=== PATIENT | male | born 1960 | race Caucasian/White ===

== ENCOUNTER → 2023-11-10 07:07 | Outpatient (REF) | payer MEDICARE, SELFPAY | LOC: RAD 07:07 | PROVIDERS: ATTENDING PHYSICIAN Internal Medicine Critical Care Medicine | DX: F17.210 Nicotine dependence, cigarettes, uncomplicated (principal) | CPT/HCPCS: 71271 ==

== ENCOUNTER 2023-12-12 09:17 | Emergency (ER) | payer MEDICARE, SELFPAY ==
[2023-12-12 09:20] VITALS: BP 196/123
--- NOTE | 2023-12-12 09:58 | ED.GENMED ---
History of Present Illness
General
Chief Complaint: Breathing Problem
Source: patient
Exam Limitations: none
Time Seen by Provider: 12/12/23 09:24
Nursing documentation reviewed up to this point in time: agreed with
Travel History
Have you had any contact with someone who has COVID-19?: No
Do you have any symptoms of coronavirus? Fever > 100 degrees, chills, cough, shortness of breath, sore throat, loss of taste or smell, muscle aches, or headache?: No
History of Present Illness
History of Present Illness:
63 y/o M with h/o COPD no home o2 currently
has been previously on bipap, never intubated
here with dyspnea since yeterayd, chest tightness and wheezing
he has tried 2 nebs overnight and used th elast of his inhaler this morning without relief
he has worsening symptosm with exertion
no leg swelling
is due to have echo tomorrow to be sure this is not also chf
has pinto dprevious echo 08/2022 which was normal
saw pulm 2 weeks ago and did a steroid taper 50 x 2, 40 x 2 etc btu he feels like he got worse after stopping
pt has no h/o known chf
no chest pain
just ttightness from not moving air
ran out of his inhalers.
Past History
Past History
ED Past Medical History: COPD and Other (Mild chronic lung disease)
ED Past Surgical History: Orthopedic and Other (Oral surgery, cataract surgery, hernia)
Social History
Tobacco: Smoker
Alcohol: None
Drug: None
Personal:
Living: with family
Employment: Employed
Family History
Family History: Other (Noncontributory)
Review of Systems
Review of Systems
Allergies reviewed?: Yes
All Other Systems: Not applicable
Phy Exam
Physical Exam
Physical Exam:
GENERAL: Alert mild resp distress, tachypneic, anxious
EYE: pupils equal and reactive
NECK: Supple
ENT: o/p clr, mmm.
CARDIAC: low 100s tachy, no murmur,no edema
LUNGS: tachypneic, speaking 3-4 words, diminished, tight, wheezing faint, prolonged exp
ABDOMEN: Soft, without focal tenderness, no r/g, no cvat, normal bowel sounds
NEUROLOGICAL: Alert and oriented, no focal neuro deficits
SKIN: Warm and dry, skin intact.
MUSCULOSKELETAL: No edema, well perfused. neg pete's sign
PSYCH: Normal and appropriate interaction.
Scores
Heart Failure Risk
Heart Failure Risk Score: Not Applicable
Course
Orders/Labs/Results
Orders:
Orders
12/12/23 09:22
Electrocardiogram (*1) Urgent
Reason for Study: Shortness of Breath
12/12/23 09:23
EKG- Treatment ONCE
12/12/23 09:37
Ipratropium/Albuterol Sulfate [Duoneb] 3 ml INH R NOW ONE
Ipratropium/Albuterol Sulfate [Duoneb] 3 ml INH R NOW ONE
Ipratropium/Albuterol Sulfate [Duoneb] 3 ml INH R NOW STA
MethylPREDNISolone PF [Solu-Medrol Pf] 125 mg IV NOW STA
12/12/23 09:38
Cardiac Monitoring- Treatment ONCE
12/12/23 09:55
CR Chest Portable - 1 View Urgent
Comment:
Reason For Exam: copd
Reason Study Needs to be Portable: Patient Unstable
12/12/23 09:56
Complete Blood Count/With Diff Urgent
Comprehensive Metabolic Panel Urgent
NT-proBNP Urgent
12/12/23 10:08
COVID-19 Antigen Urgent
Source: Nasal Swab
Influenza A+B Rapid Molecular Urgent
[facility] Source: Nasal Swab
Specimen Description:
Abnormal Lab Results
12/12/23
09:56
MCH 31.5 H pg
(27.0-31.0)
MPV 10.5 H fL
(7.4-10.4)
Absolute Neuts (auto) 7.4 H 10^3/uL
(1.4-6.5)
Lymphocytes % 19.5 L %
(20.5-51.1)
Sodium 133 L mmol/L
(135-145)
Glucose 106 H mg/dl
(70-99)
12/12/23 09:56
12/12/23 09:56
Vital Signs
Initial and Last Documented VS:
Initial Vital Signs
Temp Pulse Resp BP Pulse Ox
98.7 F 102 18 196/123 96
12/12/23 09:20 12/12/23 09:20 12/12/23 09:20 12/12/23 09:20 12/12/23 09:20
Last Documented Vital Signs
Temp Pulse Resp BP Pulse Ox
98.7 F 84 20 166/90 96
12/12/23 09:20 12/12/23 12:15 12/12/23 12:00 12/12/23 12:00 12/12/23 12:15
MDM/Problems Addressed
Differential Diagnosis Includes:
copd, pneumonia, chf
MDM/Problems Addressed:
63 y/o M with COPD
not on o2 currently bu thas had previously
no intubations
has had bipap
here with air hunger and wheezing since yesterday, ran out of neb and inhaler
had steroid taper just completed last week
followed by pulm
due for an echo tomrorow, mary had a normal echo previously
on exam pt was tachypneic, diminished, prolonged exp with faint wheezing
no hypoxia
he responded very well to duonebs and solumedrol
he would like to go home
i spoke with dr. lee entry level installation technician for pulm who recomended burst of jennifer and see them next week
refills of meds given
return precautions.
(cxr no edema indep reviewed by me, and bnp normal)
*Critical Care Note
Total Time (30-74mins, 75-104mins- exclusive of procedures): Not Applicable
ED Attending Note
-
Portions of this chart may have been created with voice recognition software.� Occasional wrong word or��sound alike� substitutions may have occurred due to the inherent limitations of voice recognition software.
Discharge Plan
Departure
Patient Disposition: Home (Routine Discharge)
Date of Disposition: 12/12/23
Time of Disposition: 12:25
Patient with high blood pressure during this ER visit?: Yes
Condition: Fair
Covid-19: Not Applicable
Discharge Problem:
Acute exacerbation of chronic obstructive pulmonary disease
Instructions: Exacerbation of COPD (DC)
Prescriptions:
New
albuterol sulfate 2.5 mg /3 mL (0.083 %) solution for nebulization
2.5 mg inhalation QID PRN (Reason: shortness of breath or wheezing) Qty: 75 0RF
albuterol sulfate 90 mcg/actuation HFA aerosol inhaler
2 inh inhalation Q6HPRN PRN (Reason: shortness of breath or wheezing) Qty: 6.7 0RF
prednisone 50 mg tablet
50 mg PO DAILY Qty: 5 0RF
pantoprazole [Protonix] 20 mg tablet,delayed release (DR/EC)
20 mg PO DAILY Qty: 7 0RF
No Action
ipratropium-albuterol 0.5 mg-3 mg(2.5 mg base)/3 mL solution for nebulization
3 ml INHALATION R BIDPRN PRN (Reason: sob)
oxycodone 15 mg Tablet
15 mg PO Q4H
Patient Comments:
12/12/2023, last filled on 05/20/2023 for 100 tablets per PDMP and pt.'s pharmacy.
budesonide 0.5 mg/2 mL Suspension For Nebulization
0.5 mg INHALATION R BID
albuterol sulfate 90 mcg/actuation Hfa Aerosol Inhaler
1 puff INHALATION R Q4HPRN PRN (Reason: sob)
Referrals:
Felipe Noyola MD [Family Provider] - Follow up in 5-7 days
Danilo Garcia MD [Active] - Follow up in 2-3 days
Activity Restrictions/Additional Instructions:
You were treated for COPD exacerbation today. Take prednisone once a day starting tomorrow for 5 days. Use your inhalers and nebulizers as prescribed. Make sure to call 's office to follow-up next week. Return for worsening symptoms
like shortness of breath, chest pain, wheezing, trouble breathing or any concerns
Interventions
Interventions:
*Risk Screen - Suicide Last Done: 12/12/23 09:22
*General Assessment Last Done: 12/12/23 09:22
*Neglect/Abuse Screening Last Done: 12/12/23 09:22
ED- Fall Risk Assessment Last Done: 12/12/23 10:16
*ED COVID-19 Vaccine History Last Done: 12/12/23 10:16
*Nursing Disposition Last Done: 12/12/23 12:48
ED- Cardiac Assessment Last Done: 12/12/23 10:16
ED- Pulmonary Assessment Last Done: 12/12/23 10:16
Discharge Date and Time
Discharge Date/Time: 12/12/23 12:48
Print Language: MACANESE
[2023-12-12] MEDS: DUONEB 3 ML INH ×3 (10:01→10:02)
[2023-12-12] MEDS: SOLU-MEDROL PF 125 MG IV (10:02)
[2023-12-12 10:13] VITALS: BP 150/107
[2023-12-12 10:27] LABS: % Basophils 0.4 % (0-2); % Eosinophils 0.6 % (0-6); % Immature Granulocytes 0.4 % (0-0.5); % Lymphocytes 19.5 % (20.5-51.1); % Monocytes 5.1 % (1.7-9.3); Absolute Eosinophils 0.1 10^3/uL (0-0.7); Absolute Lymphocytes 1.9 10^3/uL (1.2-3.4); Absolute Monocytes 0.5 10^3/uL (0.1-0.6); Absolute Neutrophils 7.4 10^3/uL (1.4-6.5); Hematocrit 46.8 % (39.0-52.0); Hemoglobin 16.4 g/dL (13.0-18.0); Mean Corpuscular Hgb 31.5 pg (27.0-31.0); Mean Corpuscular Volume 89.8 fL (80.0-94.0); Mean Platelet Volume 10.5 fL (7.4-10.4); Nucleated Red Blood Cells % 0 % (-); Platelet Count 219 10^3/uL (130-400); Red Blood Cell Count 5.21 10^6/uL (4.70-6.10); Red Cell Dist. Width 11.7 % (11.5-14.5)
[2023-12-12 10:35] LABS: COVID-19 Antigen Negative (Negative)
[2023-12-12 10:40] LABS: ALT (SGPT) 20 U/L (0-50); AST (SGOT) 26 U/L (17-59); Albumin 4.7 g/dl (3.5-5.0); Alkaline Phosphatase 90 U/L (38-126); Blood Urea Nitrogen 18 mg/dl (9-20); Calcium 10.2 mg/dl (8.4-10.2); Carbon Dioxide 25 mmol/L (22-30); Chloride 101 mmol/L (98-107); Glucose 106 mg/dl (70-99); Potassium 4.7 mmol/L (3.5-5.1); Sodium 133 mmol/L (135-145); Total Bilirubin 1.1 mg/dl (0.2-1.3); Total Protein 7.1 g/dl (6.3-8.2); eGFR > 60.00
--- NOTE | 2023-12-12 10:43 | PHANOTE ---
12/12/2023, med rec tech, spoke to pt. to obtain their med. history; pt. states that he takes Oxycodone 15 mg Q4H; however, pt. last filled this med. on 05/20/2023 for 100 tablets per PDMP and pt.'s pharmacy.
[2023-12-12 10:47] LABS: NT-proBNP 122 pg/ml
[2023-12-12 11:00] VITALS: BP 165/90
[2023-12-12 12:00] VITALS: BP 166/90
== END 2023-12-12 12:48 | disposition home or self-care (01) ==
LOC: EMR 09:17
PROVIDERS: Physician Assistant; EMERGENCY PHYSICIAN Student in an Organized Health Care Education/Training Program; FAMILY PHYSICIAN Family Medicine
DX: J44.1 Chronic obstructive pulmonary disease with (acute) exacerbation (principal); R03.0 Elevated blood-pressure reading, without diagnosis of hypertension; F17.200 Nicotine dependence, unspecified, uncomplicated
CPT/HCPCS: 99284; 96374; 94640; 71045; 80053; 83880; 85025; 87502; 87811; 93005

== ENCOUNTER → 2023-12-13 07:02 | Outpatient (REF) | payer MEDICARE, SELFPAY | LOC: RCS 07:02 | PROVIDERS: ATTENDING PHYSICIAN Nurse Practitioner Family; FAMILY PHYSICIAN Family Medicine | DX: R06.02 Shortness of breath (principal) | CPT/HCPCS: 93306 ==

== ENCOUNTER 2024-02-12 16:33 | Emergency (ER) | payer MEDICARE, SELFPAY ==
[2024-02-12 16:40] VITALS: BP 144/89
[2024-02-12 16:53] VITALS: BP 131/93
[2024-02-12 17:00] VITALS: BP 130/87
--- NOTE | 2024-02-12 17:10 | ED.GENMED ---
History of Present Illness
<Zainab Lara PA-C - Last Filed: 02/12/24 19:08>
General
Chief Complaint: Breathing Problem
Source: patient
Exam Limitations: none
Time Seen by Provider: 02/12/24 16:53
Nursing documentation reviewed up to this point in time: agreed with
History of Present Illness
History of Present Illness:
63-year-old male with past medical history of COPD presenting to the emergency department today with increasing shortness of breath. Patient states that for the past few days, he has had a hard time catching his breath. Patient also has had
increased coughing associated with this increased sputum production. Patient denies any color changes to his sputum. Patient denies hemoptysis. Patient denies chest pain. Patient denies fevers or chills. Patient sees Dr. Haji for pulmonology
as an outpatient. Patient has no hx of cardiac disease but states that he is currently seeing Dr. Ramakrishna See to ensure his pulmonary symptoms are not cardiac related. Patient has had to be hospitalized for COPD exacerbations in the past but he was
never intubated. He states that he had to be put on bipap in the past. Patient denies sore throat, runny nose, abdominal pain,nausea, vomiting, constipation, diarrhea. Patient has tried nebulized albuterol at home multiple times without relief.
Past History
<Zainab Lara PA-C - Last Filed: 02/12/24 19:08>
Past History
ED Past Medical History: COPD and Other (Mild chronic lung disease)
ED Past Surgical History: Orthopedic and Other (Oral surgery, cataract surgery, hernia)
Social History
Tobacco: Smoker
Alcohol: None
Drug: None
Personal:
Living: with family
Employment: Employed
Family History
Family History: Other (Noncontributory)
Review of Systems
<Zainab Lara PA-C - Last Filed: 02/12/24 19:08>
Review of Systems
All Other Systems: ROS reviewed and negative except as documented in HPI and ROS
Phy Exam
<Zainab Lara PA-C - Last Filed: 02/12/24 19:08>
Physical Exam
Physical Exam:
General: Patient is well appearing and in no acute distress; non-toxic
Skin: Warm and dry, no rashes or lesions
Head: Normocephalic, atraumatic
Eyes: Sclera non-icteric. EOMs intact. PERRLA.
Cardiac: Regular rate and rhythm, no murmurs
Peripheral Vascular: No lower extremity swelling or edema
Pulm: Increased respiratory effort, tachypnea, but not hypoxia. Mild scattered wheezing heard on exam. Breath sounds equal bilaterally.
Abdomen: No abdominal tenderness to palpation
Neuro: CN II-XII intact, no focal neurologic deficits.
Psychiatric: Appropriate mood and affect.
Scores
<Zainab Lara PA-C - Last Filed: 02/12/24 19:08>
Heart Failure Risk
Heart Failure Risk Score: Not Applicable
Course
<Zainab Lara PA-C - Last Filed: 02/12/24 19:08>
Orders/Labs/Results
Orders:
Orders
02/12/24 16:43
EKG [Electrocardiogram (*1)] Urgent
Reason for Study: Chest Pain
EKG- Treatment ONCE
02/12/24 17:03
Electrocardiogram (*1) Urgent
Reason for Study: Shortness of Breath
EKG- Treatment ONCE
Ipratropium/Albuterol Sulfate [Duoneb] 3 ml INH R NOW STA
02/12/24 17:05
CR Chest - 2 Views Urgent
Comment:
Reason For Exam: shortness of breath
02/12/24 17:06
Dexamethasone Sod Phosphate [Decadron] 10 mg IV NOW STA
02/12/24 17:25
COVID-19 Antigen Urgent
Source: Nasal Swab
Complete Blood Count/With Diff Urgent
Comprehensive Metabolic Panel Urgent
02/12/24 17:53
Ipratropium/Albuterol Sulfate [Duoneb] 3 ml INH R NOW STA
Abnormal Lab Results
02/12/24
17:25
RBC 4.22 L 10^6/uL
(4.70-6.10)
Hct 37.5 L %
(39.0-52.0)
MCH 32.2 H pg
(27.0-31.0)
Abs Immat Gran (auto) 0.1 H 10^3/uL
(0-0.05)
Absolute Neuts (auto) 6.8 H 10^3/uL
(1.4-6.5)
Absolute Monos (auto) 0.9 H 10^3/uL
(0.1-0.6)
Immature Gran % 0.8 H %
(0-0.5)
Sodium 134 L mmol/L
(135-145)
Glucose 107 H mg/dl
(70-99)
ALT 52 H U/L
(0-50)
Total Protein 6.0 L g/dl
(6.3-8.2)
02/12/24 17:25
02/12/24 17:25
Vital Signs
Initial and Last Documented VS:
Initial Vital Signs
Temp Pulse Resp BP Pulse Ox
99 F 92 16 144/89 97
02/12/24 16:40 02/12/24 16:40 02/12/24 16:40 02/12/24 16:40 02/12/24 16:40
Last Documented Vital Signs
Temp Pulse Resp BP Pulse Ox
99 F 86 19 128/79 100
02/12/24 16:40 02/12/24 18:30 02/12/24 18:30 02/12/24 18:00 02/12/24 18:30
Evertlt;Santosh Burr DO - Last Filed: 02/12/24 18:49>
Orders/Labs/Results
Orders:
Orders
02/12/24 16:43
EKG [Electrocardiogram (*1)] Urgent
Reason for Study: Chest Pain
EKG- Treatment ONCE
02/12/24 17:03
Electrocardiogram (*1) Urgent
Reason for Study: Shortness of Breath
EKG- Treatment ONCE
Ipratropium/Albuterol Sulfate [Duoneb] 3 ml INH R NOW STA
02/12/24 17:05
CR Chest - 2 Views Urgent
Comment:
Reason For Exam: shortness of breath
02/12/24 17:06
Dexamethasone Sod Phosphate [Decadron] 10 mg IV NOW STA
02/12/24 17:25
COVID-19 Antigen Urgent
Source: Nasal Swab
Complete Blood Count/With Diff Urgent
Comprehensive Metabolic Panel Urgent
02/12/24 17:53
Ipratropium/Albuterol Sulfate [Duoneb] 3 ml INH R NOW STA
Abnormal Lab Results
02/12/24
17:25
RBC 4.22 L 10^6/uL
(4.70-6.10)
Hct 37.5 L %
(39.0-52.0)
MCH 32.2 H pg
(27.0-31.0)
Abs Immat Gran (auto) 0.1 H 10^3/uL
(0-0.05)
Absolute Neuts (auto) 6.8 H 10^3/uL
(1.4-6.5)
Absolute Monos (auto) 0.9 H 10^3/uL
(0.1-0.6)
Immature Gran % 0.8 H %
(0-0.5)
Sodium 134 L mmol/L
(135-145)
Glucose 107 H mg/dl
(70-99)
ALT 52 H U/L
(0-50)
Total Protein 6.0 L g/dl
(6.3-8.2)
02/12/24 17:25
02/12/24 17:25
Vital Signs
Initial and Last Documented VS:
Initial Vital Signs
Temp Pulse Resp BP Pulse Ox
99 F 92 16 144/89 97
02/12/24 16:40 02/12/24 16:40 02/12/24 16:40 02/12/24 16:40 02/12/24 16:40
Last Documented Vital Signs
Temp Pulse Resp BP Pulse Ox
99 F 86 19 128/79 100
02/12/24 16:40 02/12/24 18:30 02/12/24 18:30 02/12/24 18:00 02/12/24 18:30
Evertlt;Zainab Lara PA-C - Last Filed: 02/12/24 19:08>
MDM/Problems Addressed
Differential Diagnosis Includes:
ddx include COPD exacerbation, pneumonia, seasonal allergies, COVID 19 infection, arrhythmia, heart failure
MDM/Problems Addressed:
Shortness of breath:
63-year-old male with past medical history of COPD presenting to the emergency department today with increasing shortness of breath. Patient states that for the past few days, he has had a hard time catching his breath. Patient also has had
increased coughing associated with this increased sputum production. Patient denies any color changes to his sputum.
Patient was given a dose of Decadron and 3 nebulizer treatments back to back. Patient was not hypoxic but put on 2L for comfort and states that this made him feel a lot better. On reassessment his lungs are clear, and he states that he feels
dramatically better and wants to go home. CXR negative for pneumonia. Patient sent home on azithromycin and prednisone course and patient advised to follow-up with archivist political history and butcher head. Patient stable for discharge.
Chronic conditions affecting care:
COPD
Acute Exacerbation and/or Progression of Chronic Illness:
COPD
<FREDY Olivia Last Filed: 02/12/24 19:08>
*Radiology
Radiology exam reviewed: preliminary read by ED provider (no infiltrate, no cardiomegaly)
*Pulse Oximetry
Patient hypoxic: no
*Critical Care Note
Total Time (30-74mins, 75-104mins- exclusive of procedures): Not Applicable
Data Reviewed
Review of Other/Old Records Reveals: Records (reviewed ER physician documentation from 12/12/23)
Source: patient
<FREDY Olivia Last Filed: 02/12/24 19:08>
Patient Management
Escalation/DeEscalation of care consider admission/obs:
admit not indicated, case reviewed with my attending Dr. Burr
ED Attending Note
<FREDY Olivia Last Filed: 02/12/24 19:08>
-
Portions of this chart may have been created with voice recognition software.� Occasional wrong word or��sound alike� substitutions may have occurred due to the inherent limitations of voice recognition software.
<Santosh Burr DO - Last Filed: 02/12/24 18:49>
ED Attending Note
Patient seen and examined by attending physician: Yes
I performed the substantive portion of visit, reviewed & personally made and approve the management plan that is documented in note by myself or LARRY.: Yes
ED Attending Note:
I agree with Zainab's note.
Patient presents with shortness of breath, cough
Afebrile, no acute respiratory distress
Lungs clear by the time my evaluation after treatment
Labs reassuring, chest x-ray shows no acute abnormality
Patient stable for discharge home
Discharge Plan
Departure
Patient Disposition: Home (Routine Discharge)
Date of Disposition: 02/12/24
Time of Disposition: 18:47
Patient with high blood pressure during this ER visit?: Yes
Condition: Good
Discharge Problem:
COPD exacerbation
Instructions: Exacerbation of COPD (DC), BLOOD PRESSURE
Prescriptions:
New
prednisone 20 mg tablet
40 mg PO DAILY 5 Days Qty: 10 0RF
azithromycin 500 mg tablet
500 mg PO DAILY 5 Days Qty: 5 0RF
No Action
ipratropium-albuterol 0.5 mg-3 mg(2.5 mg base)/3 mL solution for nebulization
3 ml INHALATION R BIDPRN PRN (Reason: sob)
oxycodone 15 mg Tablet
15 mg PO Q4H
Patient Comments:
12/12/2023, last filled on 05/20/2023 for 100 tablets per PDMP and pt.'s pharmacy.
budesonide 0.5 mg/2 mL Suspension For Nebulization
0.5 mg INHALATION R BID
albuterol sulfate 90 mcg/actuation Hfa Aerosol Inhaler
1 puff INHALATION R Q4HPRN PRN (Reason: sob)
albuterol sulfate 2.5 mg /3 mL (0.083 %) solution for nebulization
2.5 mg inhalation QID PRN (Reason: shortness of breath or wheezing) Qty: 75 0RF
albuterol sulfate 90 mcg/actuation HFA aerosol inhaler
2 inh inhalation Q6HPRN PRN (Reason: shortness of breath or wheezing) Qty: 6.7 0RF
prednisone 50 mg tablet
50 mg PO DAILY Qty: 5 0RF
pantoprazole [Protonix] 20 mg tablet,delayed release (DR/EC)
20 mg PO DAILY Qty: 7 0RF
Referrals:
UNKNOWN - PT DOES,NOT KNOW [Unknown Provider] -
Activity Restrictions/Additional Instructions:
Prednisone was sent to your pharmacy. Starting tomorrow, please take 40 mg once daily for 5 days.
Please follow up with your archivist political history.
Please return to the emergency department should you experience chest pain, shortness of breath, dizziness, lightheadedness, syncopal episodes, or any other concerning signs or symptoms
Interventions
Interventions:
*Risk Screen - Suicide Last Done: 02/12/24 16:40
*General Assessment Last Done: 02/12/24 16:40
*Neglect/Abuse Screening Last Done: 02/12/24 16:40
*ED COVID-19 Vaccine History Last Done: 02/12/24 18:56
*Nursing Disposition Last Done: 02/12/24 18:56
ED- Cardiac Assessment Last Done: 02/12/24 17:34
ED- Pulmonary Assessment Last Done: 02/12/24 17:34
Discharge Date and Time
Print Language: GERMAN
[2024-02-12] MEDS: DUONEB 3 ML INH ×2 (17:18→18:21)
[2024-02-12] MEDS: DECADRON 10 MG IV (17:24)
[2024-02-12 17:38] LABS: % Basophils 0.5 % (0-2); % Eosinophils 0.5 % (0-6); % Immature Granulocytes 0.8 % (0-0.5); % Lymphocytes 20.9 % (20.5-51.1); % Monocytes 9.3 % (1.7-9.3); Absolute Basophils 0.1 10^3/uL (0-0.2); Absolute Eosinophils 0.1 10^3/uL (0-0.7); Absolute Immature Granulocytes 0.1 10^3/uL (0-0.05); Absolute Lymphocytes 2.1 10^3/uL (1.2-3.4); Absolute Monocytes 0.9 10^3/uL (0.1-0.6); Absolute Neutrophils 6.8 10^3/uL (1.4-6.5); Hematocrit 37.5 % (39.0-52.0); Hemoglobin 13.6 g/dL (13.0-18.0); Mean Corp Hgb Conc. 36.3 g/dL (33.0-37.0); Mean Corpuscular Hgb 32.2 pg (27.0-31.0); Mean Corpuscular Volume 88.9 fL (80.0-94.0); Mean Platelet Volume 9.2 fL (7.4-10.4); Nucleated Red Blood Cells % 0 % (-); Platelet Count 201 10^3/uL (130-400); Red Blood Cell Count 4.22 10^6/uL (4.70-6.10)
[2024-02-12 17:39] LABS: White Blood Cell Count 9.9 10^3/uL (4.8-10.8)
[2024-02-12 17:47] LABS: ALT (SGPT) 52 U/L (0-50); AST (SGOT) 32 U/L (17-59); Albumin 3.7 g/dl (3.5-5.0); Alkaline Phosphatase 88 U/L (38-126); Blood Urea Nitrogen 11 mg/dl (9-20); COVID-19 Antigen Negative (Negative); Carbon Dioxide 26 mmol/L (22-30); Chloride 101 mmol/L (98-107); Glucose 107 mg/dl (70-99); Potassium 3.9 mmol/L (3.5-5.1); Sodium 134 mmol/L (135-145); Total Bilirubin 0.5 mg/dl (0.2-1.3); eGFR > 60.00
[2024-02-12 17:56] VITALS: BP 121/78
[2024-02-12 18:00] VITALS: BP 128/79
== END 2024-02-12 18:56 | disposition home or self-care (01) ==
LOC: EMR 16:33
PROVIDERS: Physician Assistant; EMERGENCY PHYSICIAN Emergency Medicine; FAMILY PHYSICIAN Family Medicine
DX: J44.1 Chronic obstructive pulmonary disease with (acute) exacerbation (principal); R03.0 Elevated blood-pressure reading, without diagnosis of hypertension; F17.200 Nicotine dependence, unspecified, uncomplicated
CPT/HCPCS: 99285; 96374; 94640; 71046; 80053; 85025; 87811; 93005

== ENCOUNTER 2024-02-15 05:16 | Inpatient (IN) | payer MEDICARE, SELFPAY ==
[2024-02-15] VITALS (11 sets, daily range): BP systolic 99–131; BP diastolic 65–87; PULSE 76; O2SAT 97; BMI 22.9; BMI 22.8
[2024-02-15 03:00] LABS: % Basophils 0.5 % (0-2); % Eosinophils 0.4 % (0-6); % Immature Granulocytes 0.9 % (0-0.5); % Lymphocytes 11.3 % (20.5-51.1); % Monocytes 6.2 % (1.7-9.3); % Neutrophils 80.7 % (42.2-75.2); Absolute Basophils 0.1 10^3/uL (0-0.2); Absolute Eosinophils 0.1 10^3/uL (0-0.7); Absolute Immature Granulocytes 0.1 10^3/uL (0-0.05); Absolute Lymphocytes 1.8 10^3/uL (1.2-3.4); Hematocrit 38.5 % (39.0-52.0); Mean Corp Hgb Conc. 36.4 g/dL (33.0-37.0); Mean Corpuscular Volume 88.1 fL (80.0-94.0); Mean Platelet Volume 9.3 fL (7.4-10.4); Nucleated Red Blood Cells % 0 % (-); Platelet Count 248 10^3/uL (130-400); Red Blood Cell Count 4.37 10^6/uL (4.70-6.10); Red Cell Dist. Width 12.4 % (11.5-14.5); White Blood Cell Count 16.2 10^3/uL (4.8-10.8)
[2024-02-15 03:16] LABS: ALT (SGPT) 40 U/L (0-50); AST (SGOT) 28 U/L (17-59); Albumin 4.1 g/dl (3.5-5.0); Alkaline Phosphatase 81 U/L (38-126); Blood Urea Nitrogen 17 mg/dl (9-20); Calcium 9.1 mg/dl (8.4-10.2); Carbon Dioxide 28 mmol/L (22-30); Chloride 101 mmol/L (98-107); Estimated Creatinine Clearance 82 ml/min; Glucose 103 mg/dl (70-99); Potassium 4.5 mmol/L (3.5-5.1); Sodium 133 mmol/L (135-145); Total Bilirubin 0.6 mg/dl (0.2-1.3); Total Protein 6.2 g/dl (6.3-8.2); eGFR > 60.00
--- NOTE | 2024-02-15 03:49 | ED.GENMED ---
History of Present Illness
<MARCELO Cruz - Last Filed: 02/15/24 07:10>
General
Chief Complaint: Breathing Problem
Source: patient
Exam Limitations: none
Time Seen by Provider: 02/15/24 03:49
Nursing documentation reviewed up to this point in time: agreed with
History of Present Illness
History of Present Illness:
63 year old male presents for evaluation of SOB. Pt has a history of COPD, and was evaluated at the ED two days ago for similar sx where he was given 3 nebulizer treatments, IV steroids, and prescriptions for Zithromax 500 mg daily x 5 days and
prednisone 40 mg x 5 days. Pt reports that this acutely relieved his sx, but over the last 2 days his sx have returned. He adds that he awoke this morning with worsening SOB, and SpO2 was reportedly in the 80's per EMS prior to ED arrival. He has
experienced COPD exacerbations in the past, but notes that his sx over the last 4 days have been more severe than past exacerbations. Patient also has had increased coughing associated with increased sputum production. Patient denies any color
changes to his sputum. He denies hemoptysis and chest pain. Patient denies fevers or chills, N/V, chills, fatigue, and exposure to sick contacts. Pt currently smokes 1/2 PPD.
Past History
<MARCELO Cruz - Last Filed: 02/15/24 07:10>
Past History
ED Past Medical History: COPD and Other (Mild chronic lung disease)
ED Past Surgical History: Orthopedic and Other (Oral surgery, cataract surgery, hernia)
Social History
Tobacco: Smoker
Alcohol: None
Drug: None
Personal:
Living: with family
Employment: Employed
Family History
Family History: Other (Noncontributory)
Review of Systems
<MARCELO Cruz - Last Filed: 02/15/24 07:10>
Review of Systems
Allergies reviewed?: Yes
Constitutional: Reports no symptoms
EENT: Reports no symptoms
Respiratory: Reports cough and trouble breathing
Cardiac: Reports no symptoms
ABD/GI: Reports no symptoms
: Reports no symptoms
Musculoskeletal: Reports no symptoms
Skin: Reports no symptoms
Neurological: Reports no symptoms
Phy Exam
<MARCELO Cruz - Last Filed: 02/15/24 07:10>
General Physical Exam
General Presentation: mild distress
General age: appears stated age
General Skin: warm
General Habitus: normal
General Mental: alert
Cardiovascular Exam
Cardiovascular Exam: regular rate/rhythm and no murmur
Pulmonary Exam
Pulmonary Exam: other (expiratory wheezes BL )
Respiratory Effort: tachypnea
Oxygen Status: oxygen 2 liters via NC
Cough: productive cough
Respirations: mild increase in effort
Neurological Exam
Neurological Exam: alert and oriented x3
Skin Exam
Skin Exam: normal color
Scores
<MARCELO Cruz - Last Filed: 02/15/24 07:10>
Heart Failure Risk
Heart Failure Risk Score: Not Applicable
Course
<MARCELO Cruz - Last Filed: 02/15/24 07:10>
Orders/Labs/Results
Orders:
Orders
02/15/24 02:55
Electrocardiogram (*1) Urgent
Reason for Study: Shortness of Breath
EKG- Treatment ONCE
02/15/24 02:56
Complete Blood Count/With Diff Urgent
Comprehensive Metabolic Panel Urgent
02/15/24 04:28
Dexamethasone Sod Phosphate [Decadron] 10 mg IV NOW STA
Ipratropium/Albuterol Sulfate [Duoneb] 3 ml INH R NOW STA
Nicotine [Nicoderm Transdermal] 14 mg TRANSDERM NOW STA
02/15/24 04:31
Admit/Transfer Patient As Directed
Co-Sign Provider:
Level of Care: Inpatient admission
Assign to:: Telemetry
Physician / Group: vic
Diagnosis: AE COPD failed OP Tx
Reason for Telemetry: Other
Other Reason for Telemetry: acute hypoxic RF
Date to Stop Telemetry: 02/17/24
Time to Stop Telemetry: 11:00
Reason for Hospitalization: AE COPD failed OP Tx
Expected length of stay greater than two midnights?: Yes
ELOS- Estimated Length of Stay in days: 3
I certify the patient meets the requirements for IP care: Yes
02/15/24 04:32
CR Chest - 2 Views Urgent
Comment:
Reason For Exam: acute SOB, cough
02/15/24 04:33
Code Status As Directed
Resuscitation Status: Full Code
02/15/24 Breakfast
Cholesterol Lowering
Cholesterol Lowering: Sodium, 2 Gram
Flush (0.9% Sodium Chloride) [Flush (Nss)] See Dose Instructions IV PER PROTOCOL
02/15/24 06:22
Acetaminophen [Tylenol] 650 mg PO Q4HPRN PRN
Ipratropium/Albuterol Sulfate [Duoneb] 3 ml INH R Q4HPRN PRN
02/15/24 06:22
Consult Notification Routine
Specialty to Notify: Pulmonary
PULMONARY CONSULT Routine
Consulting Provider: Ijeoma Hedrick
Was physician already notified: No
Reason for consult: AE COPD failed OP Tx
Activity As Directed
Activity Level: With Assistance
Intake/ Output As Directed
Frequency: Per unit guidelines
Vital Signs As Directed
Frequency: Per unit guidelines
Weight As Directed
Frequency: Daily
Copd Education [RESP] Routine
O2 Therapy [RESP] Routine
Nasal Cannula Liter Flow: 4 LPM
Titrate/Wean O2 to maintain O2 sat greater than (%): 94
Special Instructions: adjust, if necessary, to avoid hyperoxia in CO2 retainers.
Use High Flow O2 if necessary
Rx Pep / Acapela [RESP] Routine
Pt Eval And Treat Routine
Activity Level: With Assistance
DX Deep Vein Thrombosis Video Routine
02/15/24 08:00
Azithromycin [Zithromax] 500 mg PO DAILY
Guaifenesin [Mucinex] 1,200 mg PO Q12
Ipratropium/Albuterol Sulfate [Duoneb] 3 ml INH R QID
Pantoprazole [Protonix] 20 mg PO DAILY
02/15/24 14:00
Dexamethasone Sod Phosphate [Decadron] 4 mg IV Q8H
02/15/24 18:00
Enoxaparin Sodium [Lovenox] 40 mg SC QPM
02/16/24 06:00
Basic Metabolic Panel IN AM
Complete Blood Count/With Diff IN AM
02/17/24 11:00
DC Protocol for Telemetry ONCE
Abnormal Lab Results
02/15/24
02:56
WBC 16.2 H 10^3/uL
(4.8-10.8)
RBC 4.37 L 10^6/uL
(4.70-6.10)
Hct 38.5 L %
(39.0-52.0)
MCH 32.0 H pg
(27.0-31.0)
Abs Immat Gran (auto) 0.1 H 10^3/uL
(0-0.05)
Absolute Neuts (auto) 13.0 H 10^3/uL
(1.4-6.5)
Absolute Monos (auto) 1.0 H 10^3/uL
(0.1-0.6)
Immature Gran % 0.9 H %
(0-0.5)
Neutrophils % 80.7 H %
(42.2-75.2)
Lymphocytes % 11.3 L %
(20.5-51.1)
Sodium 133 L mmol/L
(135-145)
Glucose 103 H mg/dl
(70-99)
Total Protein 6.2 L g/dl
(6.3-8.2)
02/15/24 02:56
02/15/24 02:56
Vital Signs
Initial and Last Documented VS:
Initial Vital Signs
Temp Pulse Resp BP Pulse Ox
98.7 F 105 35 129/81 97
02/15/24 02:52 02/15/24 02:52 02/15/24 02:52 02/15/24 02:52 02/15/24 02:52
Last Documented Vital Signs
Temp Pulse Resp BP Pulse Ox
98.3 F 83 20 131/87 99
02/15/24 06:38 02/15/24 06:38 02/15/24 06:38 02/15/24 06:38 02/15/24 06:46
<Courtney Hendrix DO - Last Filed: 02/15/24 04:38>
Orders/Labs/Results
Orders:
Orders
02/15/24 02:55
Electrocardiogram (*1) Urgent
Reason for Study: Shortness of Breath
EKG- Treatment ONCE
02/15/24 02:56
Complete Blood Count/With Diff Urgent
Comprehensive Metabolic Panel Urgent
02/15/24 04:28
Dexamethasone Sod Phosphate [Decadron] 10 mg IV NOW STA
Ipratropium/Albuterol Sulfate [Duoneb] 3 ml INH R NOW STA
Nicotine [Nicoderm Transdermal] 14 mg TRANSDERM NOW STA
02/15/24 04:31
Admit/Transfer Patient As Directed
Co-Sign Provider:
Level of Care: Inpatient admission
Assign to:: Telemetry
Physician / Group: vic
Diagnosis: AE COPD failed OP Tx
Reason for Telemetry: Other
Other Reason for Telemetry: acute hypoxic RF
Date to Stop Telemetry: 02/17/24
Time to Stop Telemetry: 11:00
Reason for Hospitalization: AE COPD failed OP Tx
Expected length of stay greater than two midnights?: Yes
ELOS- Estimated Length of Stay in days: 3
I certify the patient meets the requirements for IP care: Yes
02/15/24 04:32
CR Chest - 2 Views Urgent
Comment:
Reason For Exam: acute SOB, cough
02/15/24 04:33
Code Status As Directed
Resuscitation Status: Full Code
02/15/24 Breakfast
Cholesterol Lowering
Cholesterol Lowering: Sodium, 2 Gram
Flush (0.9% Sodium Chloride) [Flush (Nss)] See Dose Instructions IV PER PROTOCOL
02/15/24 06:22
Acetaminophen [Tylenol] 650 mg PO Q4HPRN PRN
Ipratropium/Albuterol Sulfate [Duoneb] 3 ml INH R Q4HPRN PRN
02/15/24 06:22
Consult Notification Routine
Specialty to Notify: Pulmonary
PULMONARY CONSULT Routine
Consulting Provider: Ijeoma Hedrick
Was physician already notified: No
Reason for consult: AE COPD failed OP Tx
Activity As Directed
Activity Level: With Assistance
Intake/ Output As Directed
Frequency: Per unit guidelines
Vital Signs As Directed
Frequency: Per unit guidelines
Weight As Directed
Frequency: Daily
Copd Education [RESP] Routine
O2 Therapy [RESP] Routine
Nasal Cannula Liter Flow: 4 LPM
Titrate/Wean O2 to maintain O2 sat greater than (%): 94
Special Instructions: adjust, if necessary, to avoid hyperoxia in CO2 retainers.
Use High Flow O2 if necessary
Rx Pep / Acapela [RESP] Routine
Pt Eval And Treat Routine
Activity Level: With Assistance
DX Deep Vein Thrombosis Video Routine
02/15/24 08:00
Azithromycin [Zithromax] 500 mg PO DAILY
Guaifenesin [Mucinex] 1,200 mg PO Q12
Ipratropium/Albuterol Sulfate [Duoneb] 3 ml INH R QID
Pantoprazole [Protonix] 20 mg PO DAILY
02/15/24 14:00
Dexamethasone Sod Phosphate [Decadron] 4 mg IV Q8H
02/15/24 18:00
Enoxaparin Sodium [Lovenox] 40 mg SC QPM
02/16/24 06:00
Basic Metabolic Panel IN AM
Complete Blood Count/With Diff IN AM
02/17/24 11:00
DC Protocol for Telemetry ONCE
Abnormal Lab Results
02/15/24
02:56
WBC 16.2 H 10^3/uL
(4.8-10.8)
RBC 4.37 L 10^6/uL
(4.70-6.10)
Hct 38.5 L %
(39.0-52.0)
MCH 32.0 H pg
(27.0-31.0)
Abs Immat Gran (auto) 0.1 H 10^3/uL
(0-0.05)
Absolute Neuts (auto) 13.0 H 10^3/uL
(1.4-6.5)
Absolute Monos (auto) 1.0 H 10^3/uL
(0.1-0.6)
Immature Gran % 0.9 H %
(0-0.5)
Neutrophils % 80.7 H %
(42.2-75.2)
Lymphocytes % 11.3 L %
(20.5-51.1)
Sodium 133 L mmol/L
(135-145)
Glucose 103 H mg/dl
(70-99)
Total Protein 6.2 L g/dl
(6.3-8.2)
02/15/24 02:56
02/15/24 02:56
Vital Signs
Initial and Last Documented VS:
Initial Vital Signs
Temp Pulse Resp BP Pulse Ox
98.7 F 105 35 129/81 97
02/15/24 02:52 02/15/24 02:52 02/15/24 02:52 02/15/24 02:52 02/15/24 02:52
Last Documented Vital Signs
Temp Pulse Resp BP Pulse Ox
98.3 F 83 20 131/87 99
02/15/24 06:38 02/15/24 06:38 02/15/24 06:38 02/15/24 06:38 02/15/24 06:46
<MARCELO Cruz - Last Filed: 02/15/24 07:10>
MDM/Problems Addressed
Differential Diagnosis Includes:
COPD exacerbation
<MARCELO Cruz - Last Filed: 02/15/24 07:10>
*Critical Care Note
Total Time (30-74mins, 75-104mins- exclusive of procedures): Not Applicable
ED Attending Note
<MARCELO Cruz - Last Filed: 02/15/24 07:10>
-
Portions of this chart may have been created with voice recognition software.� Occasional wrong word or��sound alike� substitutions may have occurred due to the inherent limitations of voice recognition software.
<Courtney Hendrix DO - Last Filed: 02/15/24 04:38>
ED Attending Note
Patient seen and examined by attending physician: Yes
ED Attending Note:
This is a 63-year-old gentleman with history of COPD, continued tobacco use originally presented to this ED February 11 with complaints of exacerbation of COPD, cough, shortness of breath for several days without a fever, no chest pain. Labs were
unremarkable, chest x-ray showed hyperinflation but otherwise unremarkable. He was given 3 nebulizer treatments, IV steroids, felt improved and requested to go home.
He was discharged with a 5-day course of prednisone 40 mg daily as well as 5-day course of Zithromax 500 mg daily.
Despite this regimen along with nebulizer treatments at home he continues with significant shortness of breath, much worse tonight prompting EMS. Reportedly hypoxic with pulse ox in the high 80s upon EMS arrival.
Currently more comfortable on nasal cannula oxygen but continues with moderate resting tachypnea. He is afebrile.
63-year-old gentleman appears older than stated age, moderate resting tachypnea, able to speak in full sentences.
HEENT: Oral mucosa is mildly dry. No JVD.
Heart is regular rate and rhythm.
Lungs have moderately decreased breath sounds throughout with expiratory wheezing throughout.
Abdomen is soft and nontender.
Extremities have no clubbing or cyanosis or edema. Peripheral pulses are full and equal. Nontender.
No focal neurodeficits.
Skin is warm and dry, normal color. Good turgor. Multiple tattoos.
Concern for acute exacerbation of COPD and has failed outpatient treatment.
Acute hypoxic respiratory failure requiring supplemental oxygen.
Will initiate nebulizer treatment, IV steroids and plan to admit to hospital service.
Will repeat chest x-ray, assess for potential infiltrate, pneumothorax.
Discharge Plan
Departure
Patient Disposition: Admit
Date of Disposition: 02/15/24
Time of Disposition: 04:32
Admit to: Med/Surg
Admit to doctor: Vic
Presentation/result/management discussed w/ accepting MD/DO: Hospitalist
Condition: Fair
Discharge Problem:
Acute respiratory failure with hypoxia, Acute exacerbation of chronic obstructive pulmonary disease
Interventions
Interventions:
*Risk Screen - Suicide Last Done: 02/15/24 02:54
*General Assessment Last Done: 02/15/24 02:54
*Neglect/Abuse Screening Last Done: 02/15/24 02:54
ED- Fall Risk Assessment Last Done: 02/15/24 03:01
*ED COVID-19 Vaccine History Last Done: 02/15/24 02:54
*Nursing Disposition Last Done: 02/15/24 06:06
ED- Cardiac Assessment Last Done: 02/15/24 03:00
ED- Pulmonary Assessment Last Done: 02/15/24 03:00
Discharge Date and Time
Discharge Date/Time: 02/15/24 06:07
--- NOTE | 2024-02-15 04:26 | HPS.HSE ---
Family Physician
-
Family Physician: Felipe Noyola
Chief Complaint
-
worsening SoB
History of Present Illness
HPI
63M Former smoker, HX COPD seen at ER for evaluation of worsening SoB:
- 2nd visit to ER in last 3 days
- First ER visit is for AE COPD DC'd on rapid tapering course of PO prednisone and PO Zithromax
- lat night, he woke up and reports worsening SoB
- associated with worsening chronic cough with increased sputum production
- Denied colored sputum
- At ER: tachypneic, tachycardic , hypoxic
ROS;
He denies hemoptysis and chest pain. Patient denies fevers or chills, N/V, chills, fatigue, and exposure to sick contacts.
Medical History
Past Medical History
Past Medical History: Reports Other
Additional Past Medical History:
Severe COPD
Chronic Back Pain
Past Surgical History: Reports Other
Additional Past Surgical History:
Ex Lap / JULIETH
Incisional Herniorrhaphy
ORIF Mandible
Lumbar Laminectomy / Discectomy x 4 total
Social History
Tobacco: Smoker (Current every day smoker. > 50 pack years total use.)
Alcohol: None (There is noted history of alcohol abuse in record - though denies any use in years.)
Drug: None
Family History
Family History: Not pertinent
Allergies / Home Medications
Allergies reflects when Allergies were last updated in [facility].
Home Medications with original date entered in [facility]
Allergy/Medication List:
Allergies
Allergy/AdvReac Type Severity Reaction Status Date / Time
pregabalin [From Lyrica] Allergy hallucinati Verified 08/20/22 01:21
ons
Home Medications
oxycodone-acetaminophen 10 mg-325 mg tablet (Percocet) 1 ea PO Q4HPRN PRN back pain 04/22/18
Patient also reportedly takes 3 inhalers for his COPD. Cannot recall names / doses of these.
Review of Systems
-
History Source: Patient and Family
A 12 point ROS was completed and negative except as noted: Yes
Constitutional: Reports Fatigue; Denies Fever or Chills
EENT: Denies Sore Throat
Respiratory: Reports Trouble Breathing; Denies Cough or Hemoptysis
Cardiac: Denies Chest Pain, Diaphoresis, Palpitations or Syncope
Abdomen/GI: Denies Abdominal Pain, Nausea, Vomiting or Diarrhea
: Denies Dysuria or Frequency
Musculoskeletal: Reports Other (Back pain); Denies Joint Pain, Muscle Pain or Edema
Neurological: Denies Dizzy or Headache
Psych: Denies Depression or Anxiety
Physical Exam
Vital Signs
Vital Signs
Temp Pulse Resp BP Pulse Ox
98.7 F 106 27 129/81 97
02/15/24 02:52 02/15/24 03:00 02/15/24 03:00 02/15/24 02:52 02/15/24 03:00
Physical Exam
General: Other ( mild distress due to dyspnea / tachypnea.)
HEENT: Moist mucous membranes, PERRLA and Other (BiPAP mask in place.)
Respiratory: Other (Decreased BS throughout with scattered expiratory wheezes and proloned expiratory phase.)
Cardiac: S1/S2 and Regular Rhythm; No Murmur
GI: Soft, Non Tender, Non Distended and Normal Bowel Sounds
Musculoskeletal: No Clubbing, No Cyanosis and No Edema
Neuro: AO x 3 and Nonfocal/grossly intact
Laboratory Results
-
02/15/24 02:56
02/15/24 02:56
Laboratory Results
Total Bilirubin 0.6 mg/dl (0.2-1.3) 02/15/24 02:56
AST 28 U/L (17-59) 02/15/24 02:56
ALT 40 U/L (0-50) 02/15/24 02:56
Alkaline Phosphatase 81 U/L (38-126) 02/15/24 02:56
Data Reviewed
-
Diagnostic Radiology: Discussed with Physician
Medical Tests (Nuc Med, Echo, EKG etc): Report Reviewed by me
Lab Data: Labs Reviewed by me
Old Records: Reviewed
Impression/Plan
-
Reviewed VS: Afebrile tachypneic tachycardic normotensive POx hi 90s on 4 L
Data
WCC 16s
Na 133
nl eGFR
02/12/24 CXR: No acute cardiopulmonary process. Chronic obstructive pulmonary disease.
02/15/24 CXR : pending
EKG report
SINUS TACHYCARDIA WITH PREMATURE ATRIAL COMPLEXES
OTHERWISE NORMAL ECG
WHEN COMPARED WITH ECG OF 12-FEB-2024 16:48,
NO SIGNIFICANT CHANGE WAS FOUND
Last hospitalist admission: 08/20/22- 08/24/22
Discharge diagnosis :
Acute hypoxic respiratory failure
Chronic obstructive pulmonary disease exacerbation
Active tobacco abuse
Mild hyponatremia
Mild hyperkalemia
Nonmyocardial infarction troponin elevation
Chronic Discharge diagnosis :
Chronic back pain and narcotic dependence
Alcohol use disorder
ASSESSMENT & PLAN
Pending Rx reconciliation
AE-COPD - failed OP Tx
Acute Hypoxemic RF due to the above
Ongoing smoker
- f/u admission CXR
-cont. O2 - goal POx 94 and above
- IV Decadron
- DuoNebs
- Encourage smoking cessation i
- Pul consult
Chronic Back Pain
- cont. HOUSE RN oxycodone PRN pain.
DVT Prophylaxis: Lovenox
Code Status: Full
IP TLM
[2024-02-15] MEDS: DUONEB 3 ML INH ×5 (04:42→19:18)
[2024-02-15] MEDS: DECADRON 10 MG IV (04:43)
[2024-02-15] MEDS: NICODERM TRANSDERMAL 14 MG TRANSDERM (04:50)
--- NOTE | 2024-02-15 06:48 | PTCARENOTE ---
Receive pt from ER. Pt alert oriented X3. Pt states that he doesn't want to walk to 'not work out his lungs' and to prevent SOB. Pt was able to move himself from the stretcher to his adjacent bed. Pt states that he is getting SOB. Pt's SpO2=99% on
2L NC. GP=783/87, HR=83, RR=20, T=98.3. Pt on NSR on telemonitor. Pt oriented to the room, call riggins within reach. Pt breathing gets improved after made comfortable in his bed. Pt was falling asleep during the interview. Pt denies any pain, or chest
pain. Pt is sleeping at this time. Will continue to monitor the pt.
[2024-02-15] MEDS: MUCINEX 1200 MG PO ×2 (09:34→20:21)
[2024-02-15] MEDS: ZITHROMAX 500 MG PO (09:35)
[2024-02-15] MEDS: PROTONIX 20 MG PO (09:35)
[2024-02-15] MEDS: FLUSH (NSS) 1 FLUSH IV (09:35)
--- NOTE | 2024-02-15 14:30 | W.PN.UPDATE ---
Update Note
Progress Note Update
Acute hypoxemic respiratory failure secondary to COPD exacerbation. On physical exam noted to have chest tightness poor air movement. Currently on DuoNebs.
-At this point I will go ahead and start Symbicort. Continue the azithromycin for anti-inflammatory properties. Continue guaifenesin.
Maintain SpO2 greater than 88 to 92%, wean o2 as toelrated
If not improving may need to consider BiPAP after obtaining ABG to assess CO2.
Pulmonary was already consulted.
As he was recently treated for a COPD exacerbation acutely waking up in the middle of the night with shortness of breath and chest discomfort and was tachycardic on arrival however without evidence of true hypoxia however per ED documentation it was
reported that he had a SpO2 in the 80s
At this point in time at this point in time as he has not recently had a CT PE study we will go ahead and order to rule out PE
Incentive lisa ordered
Tobacco abuse continues to smoke cigarettes down to half a pack per day. Does not believe this could be a trigger. Continue nicotine replacement
[2024-02-15 15:10] LABS: D-Dimer 0.34 ug/mlFEU (0.00-0.50)
[2024-02-15] MEDS: DECADRON 4 MG IV ×2 (15:10→21:51)
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
[2024-02-15 17:37] LABS: Troponin I < 0.012 ng/ml
[2024-02-15] MEDS: PROTONIX 40 MG PO (18:22)
[2024-02-15] MEDS: LOVENOX 40 MG SC (18:22)
[2024-02-15] MEDS: SYMBICORT 160/4.5 MCG INHALER 2 PUFF INH (19:24)
[2024-02-15 23:19] LABS: Troponin I < 0.012 ng/ml
[2024-02-16 03:24] VITALS: BP 130/24
[2024-02-16] MEDS: DECADRON 4 MG IV ×3 (05:23→21:14)
[2024-02-16 06:42] LABS: % Basophils 0.1 % (0-2); % Immature Granulocytes 0.8 % (0-0.5); % Lymphocytes 4.6 % (20.5-51.1); % Monocytes 3.3 % (1.7-9.3); % Neutrophils 91.2 % (42.2-75.2); Absolute Immature Granulocytes 0.1 10^3/uL (0-0.05); Absolute Lymphocytes 0.7 10^3/uL (1.2-3.4); Absolute Monocytes 0.5 10^3/uL (0.1-0.6); Hematocrit 36.1 % (39.0-52.0); Hemoglobin 12.8 g/dL (13.0-18.0); Mean Corp Hgb Conc. 35.5 g/dL (33.0-37.0); Mean Corpuscular Volume 90.3 fL (80.0-94.0); Mean Platelet Volume 9.6 fL (7.4-10.4); Nucleated Red Blood Cells % 0 % (-); Platelet Count 237 10^3/uL (130-400); Red Cell Dist. Width 12.2 % (11.5-14.5); White Blood Cell Count 15.3 10^3/uL (4.8-10.8)
[2024-02-16 07:06] LABS: Blood Urea Nitrogen 24 mg/dl (9-20); Calcium 9.1 mg/dl (8.4-10.2); Carbon Dioxide 25 mmol/L (22-30); Chloride 104 mmol/L (98-107); Estimated Creatinine Clearance 102 ml/min; Glucose 130 mg/dl (70-99); Potassium 4.2 mmol/L (3.5-5.1); Sodium 135 mmol/L (135-145); eGFR > 60.00
[2024-02-16 07:08] LABS: Troponin I < 0.012 ng/ml
[2024-02-16] MEDS: DUONEB 3 ML INH ×4 (07:23→20:12)
[2024-02-16] MEDS: SYMBICORT 160/4.5 MCG INHALER 2 PUFF INH ×2 (07:24→20:12)
[2024-02-16 07:25] VITALS: BP 128/79
[2024-02-16] MEDS: ZITHROMAX 500 MG PO (09:23)
[2024-02-16] MEDS: PROTONIX 40 MG PO ×2 (09:23→20:27)
[2024-02-16] MEDS: MUCINEX 1200 MG PO ×2 (09:23→20:27)
[2024-02-16 11:12] VITALS: BP 139/76
--- NOTE | 2024-02-16 12:45 | W.PN.PUL3 ---
Addendum entered and electronically signed by Mario Alberto Chao MD 02/16/24 17:53:
Of note, he says that he eventually wants to follow-up with [facility] to discuss endobronchial valves for his COPD.
Original Note:
Today's Communication / Plan
-
Systemic steroids -wean down to 4mg IV q12hr tomorrow
Wean oxygen
Assess discharge supplemental oxygen needs
Continue nebulizers
Outpatient pulmonary follow-up
Assessment
-
63-year-old male with severe end-stage COPD, was followed by [facility] now transferred care to [facility], 100+ pack-year history of smoking ongoing presents with acute shortness of breath, acute onset middle of the night.
Multiple ED visits for shortness of breath noted, recently 02/12/2024, failed outpatient therapy with steroid, Zithromax. We are asked to comment on pulmonary process
Acute hypoxic respiratory insufficiency, 80% at home per EMS
Not on home oxygen
Sinus tachycardia, P pulmonale
Normal echocardiogram 12/13/[address] PE study
Severe emphysema
Hyperinflation, DLCO 17%, RV 149%, FEV1 23%
100+ pack-year history of smoking, ongoing
Hyponatremia - now resolved
Midepigastric pain on exam - improved
Left apical nodule 6 mm in the past
Left lower lobe nodule per recent CT chest 02/15/2024
Chronic LLE DVT
Conditions present prior to admission:
COPD-reportedly severe suspect Gold stage IV-taking care of by [facility]
Maintained on Advair, Spiriva and albuterol as needed
Chronic back pain. Laminectomy in the past
Alcohol use disorder-in remission
Specifically no history of CAD, renal, gastrointestinal or neurologic disease
Exploratory laparotomy-lysis of adhesions 2018. Incisional herniography. OR internal fixation of mandible-fractured jaw. Lumbar laminectomy and discectomy x4.
Plan/recommendations
At this time, patient feels symptoms have improved. Patient describes acute onset of difficulty breathing when getting up to go to the bathroom. This appears to occur intermittently primarily at night
Unfortunately continues to smoke but has cut down from 3 packs down to 10 cigarettes.
Chest exam with poor air movement
CT chest without acute PE
There is a left lower lobe nodular infiltrate/nodule, described as subsegmental atelectasis per radiologist
Moving forward
Respiratory status has improved and he is on room air when I saw him today
Patient has had intermittent elevated troponins in the past - serial troponin negative x4
Unclear whether patient requires more of a cardiac workup. Clearly has pulmonary disease to explain his symptoms but episodic nature and rapid onset is a bit unusual for COPD
No Prior CT imaging in 2022 suggest reflux of contrast in the right atrium into the IVC suggesting a degree of right heart failure
Right and left heart cath would be helpful
Patient has not been able to tolerate BiPAP in the past
Continue nebulizer, steroids; wean steroids as tolerated
DuoNebs and Symbicort 160mcg
Consider chronic macrolide therapy vs Daliresp. Plan was to reinitiate azithromycin therapy as outpatient
Consider more aggressive maintenance inhaler therapy. Will continue with Symbicort for now
Insurance coverage has been a problem
Monitor blood sugars
Insulin supplementation as needed
Smoking cessation counseling ongoing
Cut down from 3 packs to 10 cigarettes a day
DVT prophylaxis: Enoxaparin
GI prophylaxis: N/A
Reviewed with nursing, respiratory therapy, and primary team.
Will follow
Data:
CTA Chest 02-15-2024:
1. No CTA evidence for an acute pulmonary thromboembolism.
2. Severe emphysema.
Lower Extremity US 02-16-2024:
1. Chronic appearing nonocclusive thrombus within the right lower extremity deep veins as described. No definite acute DVT.
2. No evidence of deep venous thrombosis in the left lower extremity
Total time spent today was 35 minutes for this encounter. Time includes reviewing laboratory test/imaging results, reviewing pertinent medical records, obtaining and reviewing medical history, performing an appropriate exam, ordering medications,
tests and procedures. Time also includes documentation of this encounter, coordinating patient care and communicating with other healthcare professionals. Total time does not include separately billed tests performed on this date of service.
Subjective Data
-
Date of Service:
Date of Service: February 16, 2024
Chief Complaint: Pulmonary Follow Up
Subjective:
Seen and evaluated today at bedside. He is on room air breathing comfortably. He says he wears oxygen at times when he wants to because it makes him feel better. He has a dry cough. Walking around the unit without any difficulty. He says he had
issues this morning where he aspirated into his airway but he says he has no problem swallowing food or water. He denies chest pain, headache, abdominal pain, fevers or chills.
Review of Systems
General: Other (Negative unless mentioned above)
Objective Data
Data Reviewed
Vital Signs / I&O / Oxygen:
Vital Signs
Temp Pulse Resp BP Pulse Ox
99.1 F 87 20 139/76 98
02/16/24 11:12 02/16/24 11:17 02/16/24 11:17 02/16/24 11:12 02/16/24 11:17
Intake and Output
02/15/24 02/16/24 02/17/24
06:59 06:59 06:59
Intake Total 840 / 840
Output Total 850 / 850
Balance -10 / -10
SaO2 98
Nasal Cannula flow liters per 2
minute
Physical Exam
General: Respiratory Distress (Negative) and Comfortable
HEENT: Normocephalic and Anicteric
Cardiovascular: S1-S2 and Peripheral Edema (Negative)
Respiratory: Wheeze (Negative), Crackles (Negative), Rhonchi (Negative) and Other (Reduced breath sounds bilaterally)
GI: Soft, Non Distended, Non Tender and Normal Bowel Sounds
Neurology: Awake, Alert and Tremors (Negative)
Skin: Warm and Dry
Labs/Micro/Reports
Lab Data
02/16/24 06:33
02/16/24 06:33
[2024-02-16 12:48] LABS: Troponin I < 0.012 ng/ml
[2024-02-16 15:12] VITALS: BP 130/78
[2024-02-16] MEDS: ATIVAN 0.5 MG PO (15:21)
--- NOTE | 2024-02-16 16:04 | CM ---
Addendum entered by Rebekah Miller 02/16/24 16:18:
prior oxygen company verified... [employer].
Original Note:
Patient seen bedside.
Patient lives with spouse.
IA completed.
Patient lives in a 2nd floor apartment with 13 steps up.
Ambulates without assistive devices.
Had oxygen in August thru [employer] (maybe, need to verify) but does not have at anymore.
Patient also has a home nebulizer.
Patient drives.
No Hx VN.
PCP; Dr Noyola
Pharmacy: [facility]
Plan: home with possible home oxygen.
[2024-02-16] MEDS: LOVENOX 40 MG SC (17:19)
--- NOTE | 2024-02-16 17:37 | W.PN.HOSP.TC ---
Today's Communication/Plan
-
Continue O2 supplementation
Continue steroids/Zithromax/inhaled corticosteroids/bronchodilators
Increase activity
Home O2 assessment.
3 anxiety
Assessment / Plan
Assessment / Plan
Impression:
Acute hypoxic respiratory failure
� Pulse ox is 80% upon presentation
Acute COPD exacerbation.
� Severe emphysema.
100+ pack year history of smoking, ongoing.
Euvolemic hyponatremia.
Anxiety
Conditions prior to admission:
Severe COPD/Gold stage IV
Not on home O2 prior to this presentation
Home regimen including Advair/Spiriva/albuterol as needed
Chronic back pain
Ongoing tobacco smoking
Alcohol use disorder currently in remission
History of SBO with exploratory laparotomy indications patient is a 2018.
Plan:
Acute hypoxic respiratory failure secondary to COPD exacerbation
Noted with increased work of breathing and with exertional dyspnea.
Currently on nasal cannula oxygen supplementation at 2 L with no evidence of distress
Exam with coarse rhonchi and wheezing
Imaging including chest CT with no parenchymal abnormalities other than severe emphysema and hyperinflation. Negative for pulmonary embolism.
Lower extremity Doppler with chronic right lower extremity DVT
Continue Zithromax.
Continue Decadron 4 mg IV every 8, dose not to be changed for another 24 to 48 hours.
Continue budesonide/formoterol
Continue DuoNebs
Severely anxious. Will add low-dose of lorazepam to treat anxiety and hopefully decrease work of breathing.
Continue PPI
Continue DVT prophylaxis with Lovenox
Anticipated Discharge: 24 - 48 hours
Subjective/Interval History
-
Date of Service: February 16, 2024
Objective Data
-
Labs:
Laboratory Results
02/16/24
06:33
WBC 15.3 H
Hgb 12.8 L
Hct 36.1 L
Plt Count 237
Sodium 135
Potassium 4.2
Chloride 104
Carbon Dioxide 25
BUN 24 H
Creatinine 0.8
Glucose 130 H
Calcium 9.1
Vital Signs:
Vital Signs
Temp Pulse Resp BP Pulse Ox
98.5 F 85 18 130/78 98
02/16/24 15:12 02/16/24 15:42 02/16/24 15:42 02/16/24 15:12 02/16/24 15:42
I&O
02/15/24 02/16/24 02/17/24
06:59 06:59 06:59
Intake Total 840 / 840
Output Total 850 / 850
Balance -10 / -10
Physical Exam
-
General: No Apparent Distress
HEENT: Moist Mucous Membranes
Respiratory: Clear to Auscultation
Cardiac: Regular Rhythm and S1/S2; Negative Murmur, Rub or Gallop
GI: Soft, Nontender and Normal Bowel Sounds; Negative Organomegaly
Rectal: Deferred by Provider
Musculoskeletal: No Edema
Skin: Warm and Dry
Neuro: Awake and No Motor Deficits
Psych: Calm
[2024-02-16 19:20] VITALS: BP 104/65
[2024-02-16 23:05] VITALS: BP 126/71
[2024-02-17] MEDS: ATIVAN 0.5 MG PO ×2 (00:35→08:47)
[2024-02-17 03:01] VITALS: BP 125/78
[2024-02-17] MEDS: TYLENOL 650 MG PO (03:21)
[2024-02-17] MEDS: DECADRON 4 MG IV ×3 (05:11→20:26)
[2024-02-17] MEDS: DUONEB 3 ML INH ×4 (05:37→19:36)
[2024-02-17] MEDS: SYMBICORT 160/4.5 MCG INHALER 2 PUFF INH ×2 (05:38→19:36)
[2024-02-17 06:00] VITALS: BMI 22.2
[2024-02-17 07:00] VITALS: BP 124/69
[2024-02-17] MEDS: PROTONIX 40 MG PO ×2 (08:47→20:25)
[2024-02-17] MEDS: MUCINEX 1200 MG PO ×2 (08:47→20:25)
[2024-02-17] MEDS: ZITHROMAX 500 MG PO (08:47)
--- NOTE | 2024-02-17 09:29 | PN.CDI ---
CDI
- -
CDI:
Physician Documentation Request
Admit Date: 02/15/24 05:16
Dear Doctor Puma,
Patient admitted for COPD exacerbation.
02/15 Pulmonary PN: 'Acute hypoxic respiratory insufficiency, 80% at home per EMS, Not on home oxygen'
02/15 Hospitalist PN: 'Acute hypoxic respiratory failure � Pulse ox is 80% upon presentation'
Selected Entries
02/15/24
03:00 02/15/24
07:41 02/16/24
07:29
Nasal Cannula flow liters per minute 4 3 2
02/15/24
02:52 02/15/24
04:30 02/15/24
05:15
Resp Rate 35 30 29
Due to conflicting documentation, clarify which of the following accurately represents the patient's respiratory status:
Acute hypoxic respiratory failure
Acute hypoxic respiratory insufficiency
Other
Additional information for Respiratory Failure:
Recognized criteria for Respiratory Failure (Source: [facility] Jun 2013)
ABGs: (1 or more) Symptoms Please indicate type if known
1. p)2 <60 or RA SPO2 <91% on RA 1. Tachypnea, SOB, dyspnea Hypoxic
2. pCO2 50 and pH <7.35 2. Use of accessory muscles Hypercapnic
3. pO2 decrease of pCO2 increase by 3. Pallor or cyanosis Hypoxic and Hypercapnic
10 mmHg from baseline if known 4. Anxiety or restlessness Unable to determine
5. Unable to speak in full sentences
Supplemental O2 of > 40% (5LPM) Intubation is not required
Use of terms such as suspected, likely, concern for, or probable (associated with a specific diagnosis that is being evaluated, monitored, or treated as if it exists) are acceptable and can be coded in the inpatient setting, when documented at the
time of discharge.
Thank you,
Sandrita Vasquez RN, BSN
CDI Specialist
Available via [facility] text
Please use your independent medical judgment in providing your response.
[2024-02-17 11:00] VITALS: BP 126/72
[2024-02-17] MEDS: NICODERM TRANSDERMAL 21 MG TRANSDERM (11:03)
--- NOTE | 2024-02-17 11:23 | W.PN.PUL3 ---
Today's Communication / Plan
-
Systemic steroids -wean down to 4mg IV q12hr today; hopefully can transition to prednisone taper tomorrow
Wean oxygen with walking pulse oximetry prior to discharge
Continue nebulizers
Outpatient pulmonary follow-up; would likely benefit from pulmonary rehab which can be discussed in the office
Hopefully patient can be discharged in the next 1-2 days
Assessment
-
63-year-old male with severe end-stage COPD, was followed by [facility] now transferred care to [facility], 100+ pack-year history of smoking ongoing presents with acute shortness of breath, acute onset middle of the night.
Multiple ED visits for shortness of breath noted, recently 02/12/2024, failed outpatient therapy with steroid, Zithromax. We are asked to comment on pulmonary process
Impression:
Acute hypoxic respiratory insufficiency, 80% at home per EMS
Not on home oxygen
Sinus tachycardia, P pulmonale
Normal echocardiogram 12/13/[address] PE study
Severe emphysema
Hyperinflation, DLCO 17%, RV 149%, FEV1 23%
100+ pack-year history of smoking, ongoing
Hyponatremia - now resolved
Midepigastric pain on exam - improved
Left apical nodule 6 mm in the past
Left lower lobe nodule per recent CT chest 02/15/2024
Chronic LLE DVT
Conditions present prior to admission:
COPD-reportedly severe suspect Gold stage IV-taking care of by [facility]
Maintained on Advair, Spiriva and albuterol as needed
Chronic back pain. Laminectomy in the past
Alcohol use disorder-in remission
Specifically no history of CAD, renal, gastrointestinal or neurologic disease
Exploratory laparotomy-lysis of adhesions 2018. Incisional herniography. OR internal fixation of mandible-fractured jaw. Lumbar laminectomy and discectomy x4.
Plan/recommendations
At this time, patient feels symptoms have improved. Patient describes acute onset of difficulty breathing when getting up to go to the bathroom. This appears to occur intermittently primarily at night
Unfortunately continues to smoke but has cut down from 3 packs down to 10 cigarettes.
Chest exam with poor air movement
CT chest without acute PE
There is a left lower lobe nodular infiltrate/nodule, described as subsegmental atelectasis per radiologist
Moving forward
Respiratory status has improved; he continues to be SOB with activity and uses 2 L/min nasal cannula intermittently for comfort
Patient has had intermittent elevated troponins in the past - serial troponin negative x4
Unclear whether patient requires more of a cardiac workup. Clearly has pulmonary disease to explain his symptoms but episodic nature and rapid onset is a bit unusual for COPD
No Prior CT imaging in 2022 suggest reflux of contrast in the right atrium into the IVC suggesting a degree of right heart failure
Right and left heart cath would be helpful
Patient has not been able to tolerate BiPAP in the past
Continue nebulizer, steroids; wean steroids as tolerated -wean Decadron today to 4 mg IV q12hr
DuoNebs and Symbicort 160mcg
Consider chronic macrolide therapy vs Daliresp. Plan was to reinitiate azithromycin therapy as outpatient
Consider more aggressive maintenance inhaler therapy. Will continue with Symbicort for now
Insurance coverage has been a problem
Of note, he says that he eventually wants to follow-up with [facility] to discuss endobronchial valves for his COPD.
Monitor blood sugars
Insulin supplementation as needed
Smoking cessation counseling ongoing
Cut down from 3 packs to 10 cigarettes a day
DVT prophylaxis: Enoxaparin
GI prophylaxis: N/A
Reviewed with nursing, respiratory therapy, and primary team.
Will follow
Total time spent today was 35 minutes for this encounter. Time includes reviewing laboratory test/imaging results, reviewing pertinent medical records, obtaining and reviewing medical history, performing an appropriate exam, ordering medications,
tests and procedures. Time also includes documentation of this encounter, coordinating patient care and communicating with other healthcare professionals. Total time does not include separately billed tests performed on this date of service.
Data:
CTA Chest 02-15-2024:
1. No CTA evidence for an acute pulmonary thromboembolism.
2. Severe emphysema.
Lower Extremity US 02-16-2024:
1. Chronic appearing nonocclusive thrombus within the right lower extremity deep veins as described. No definite acute DVT.
2. No evidence of deep venous thrombosis in the left lower extremity
Subjective Data
-
Date of Service:
Date of Service: February 17, 2024
Chief Complaint: Pulmonary Follow Up
Subjective:
Seen today at bedside. He worked with PT today and was very short of breath. He is currently on 2 L/min nasal cannula. Nursing says at room air patient's pulse ox is >92-94%. Patient eager to go home, denies chest pain, headache, fevers or
chills.
Review of Systems
General: Other (Negative unless mentioned above)
Objective Data
Data Reviewed
Vital Signs / I&O / Oxygen:
Vital Signs
Temp Pulse Resp BP Pulse Ox
99.3 F 84 18 126/72 94
02/17/24 11:00 02/17/24 11:00 02/17/24 11:00 02/17/24 11:00 02/17/24 11:00
Intake and Output
02/16/24 02/17/24 02/18/24
06:59 06:59 06:59
Intake Total 840 / 840 2039
Output Total 850 / 850
Balance -10 / -10 2039
SaO2 94
Nasal Cannula flow liters per 2
minute
Physical Exam
General: Respiratory Distress (Negative) and Comfortable
HEENT: Normocephalic and Anicteric
Cardiovascular: S1-S2 and Peripheral Edema (Negative)
Respiratory: Wheeze (Negative), Rhonchi (Negative) and Other (Reduced breath sounds bilaterally; coarse breath sounds bilaterally)
GI: Soft, Non Distended, Non Tender and Normal Bowel Sounds
Neurology: Awake, Alert and Tremors (Negative)
Skin: Warm and Dry
Labs/Micro/Reports
Lab Data
02/16/24 06:33
02/16/24 06:33
[2024-02-17 12:59] VITALS: BP 136/66; PULSE 95; O2SAT 98
[2024-02-17 15:00] VITALS: BP 136/87
[2024-02-17] MEDS: ATIVAN 1 MG PO (16:15)
--- NOTE | 2024-02-17 17:16 | W.PN.HOSP.TC ---
Today's Communication/Plan
-
Decadron taper as per pulmonary.
Home O2 assessment.
With severe anxiety increase Ativan
Assessment / Plan
Assessment / Plan
Impression:
Acute hypoxic respiratory failure
� Pulse ox is 80% upon presentation
Acute COPD exacerbation.
� Severe emphysema.
100+ pack year history of smoking, ongoing.
Euvolemic hyponatremia.
Anxiety
Conditions prior to admission:
Severe COPD/Gold stage IV
Not on home O2 prior to this presentation
Home regimen including Advair/Spiriva/albuterol as needed
Chronic back pain
Ongoing tobacco smoking
Alcohol use disorder currently in remission
History of SBO with exploratory laparotomy indications patient is a 2018.
Plan:
Acute hypoxic respiratory failure secondary to COPD exacerbation
Noted with increased work of breathing and with exertional dyspnea.
Currently on nasal cannula oxygen supplementation at 2 L with no evidence of distress
Exam with coarse rhonchi and wheezing
Imaging including chest CT with no parenchymal abnormalities other than severe emphysema and hyperinflation. Negative for pulmonary embolism.
Lower extremity Doppler with chronic right lower extremity DVT
Continue Zithromax.
Continue Decadron taper as per pulmonary
Continue budesonide/formoterol
Continue DuoNebs
Severely anxious. Will add low-dose of lorazepam to treat anxiety and hopefully decrease work of breathing.
Continue PPI
Continue DVT prophylaxis with Lovenox
Anticipated Discharge: 24 - 48 hours
Subjective/Interval History
-
Date of Service: February 17, 2024
Objective Data
-
Vital Signs:
Vital Signs
Temp Pulse Resp BP Pulse Ox
98.3 F 97 18 136/87 97
02/17/24 15:00 02/17/24 15:05 02/17/24 15:05 02/17/24 15:00 02/17/24 15:05
I&O
02/16/24 02/17/24 02/18/24
06:59 06:59 06:59
Intake Total 840 / 840 2039
Output Total 850 / 850
Balance -2039
Physical Exam
-
General: No Apparent Distress
HEENT: Moist Mucous Membranes
Respiratory: Clear to Auscultation
Cardiac: Regular Rhythm and S1/S2; Negative Murmur, Rub or Gallop
GI: Soft, Nontender and Normal Bowel Sounds; Negative Organomegaly
Rectal: Deferred by Provider
Musculoskeletal: No Edema
Skin: Warm and Dry
Neuro: Awake and No Motor Deficits
Psych: Calm
[2024-02-17] MEDS: LOVENOX 40 MG SC (17:52)
[2024-02-17 23:17] VITALS: BP 132/80
[2024-02-18] MEDS: ATIVAN 1 MG PO ×4 (00:04→16:47)
[2024-02-18] MEDS: DUONEB 3 ML INH ×6 (02:51→22:56)
[2024-02-18 06:00] VITALS: BMI 22.4
--- NOTE | 2024-02-18 06:33 | PTCARENOTE ---
Pt w/ c/o SOB requesting neb tx. - tx given by resp. 2 hrs later patient wokeup with the same symptoms. RR 27 pox 99% on 3L. Lungs coarse - diminished. Pt able to speak in full sentences. Additional 1 mg Ativan ordered.
[2024-02-18] MEDS: SYMBICORT 160/4.5 MCG INHALER 2 PUFF INH ×2 (07:18→19:46)
[2024-02-18 07:25] VITALS: BP 147/81
[2024-02-18] MEDS: NICODERM TRANSDERMAL 21 MG TRANSDERM (07:58)
[2024-02-18] MEDS: MUCINEX 1200 MG PO ×2 (07:59→21:05)
[2024-02-18] MEDS: PROTONIX 40 MG PO ×2 (07:59→21:06)
[2024-02-18] MEDS: ZITHROMAX 500 MG PO (08:00)
[2024-02-18] MEDS: DECADRON 4 MG IV (08:02)
--- NOTE | 2024-02-18 10:09 | W.PN.PUL3 ---
Today's Communication / Plan
-
Systemic steroids - raise steroids to solumedrol to 40mg IV q8hr
Start zithromax 500mg TIW with occasional monitoring of QTc
Wean oxygen with walking pulse oximetry prior to discharge
Continue nebulizers
Outpatient pulmonary follow-up; would likely benefit from pulmonary rehab which can be discussed in the office
Hopefully patient can be discharged in the next 1-2 days
Assessment
-
63-year-old male with severe end-stage COPD, was followed by [facility] now transferred care to [facility], 100+ pack-year history of smoking ongoing presents with acute shortness of breath, acute onset middle of the night.
Multiple ED visits for shortness of breath noted, recently 02/12/2024, failed outpatient therapy with steroid, Zithromax. We are asked to comment on pulmonary process
Impression:
Acute hypoxic respiratory insufficiency, 80% at home per EMS
Not on home oxygen
Sinus tachycardia, P pulmonale
Normal echocardiogram 12/13/[address] PE study
Severe emphysema
Hyperinflation, DLCO 17%, RV 149%, FEV1 23%
100+ pack-year history of smoking, ongoing
Hyponatremia - now resolved as of 02/16/2024
Midepigastric pain on exam - improved
Left apical nodule 6 mm in the past
Left lower lobe nodule per recent CT chest 02/15/2024
Chronic LLE DVT
Conditions present prior to admission:
COPD-reportedly severe suspect Gold stage IV-taking care of by [facility]
Maintained on Advair, Spiriva and albuterol as needed
Chronic back pain. Laminectomy in the past
Alcohol use disorder-in remission
Specifically no history of CAD, renal, gastrointestinal or neurologic disease
Exploratory laparotomy-lysis of adhesions 2018. Incisional herniography. OR internal fixation of mandible-fractured jaw. Lumbar laminectomy and discectomy x4.
Plan/recommendations
At this time, patient feels symptoms have overall improved although he is having a bad day today. Patient describes acute onset of difficulty breathing when getting up to go to the bathroom. This appears to occur intermittently primarily at night
Unfortunately continues to smoke but has cut down from 3 packs down to 10 cigarettes.
Chest exam with poor air movement
CT chest without acute PE
There is a left lower lobe nodular infiltrate/nodule, described as subsegmental atelectasis per radiologist
Moving forward
Respiratory status worse today; he continues to be SOB with activity and uses 2 L/min nasal cannula intermittently for comfort
Patient has had intermittent elevated troponins in the past - serial troponin negative x4
Unclear whether patient requires more of a cardiac workup. Clearly has pulmonary disease to explain his symptoms but episodic nature and rapid onset is a bit unusual for COPD
No Prior CT imaging in 2022 suggest reflux of contrast in the right atrium into the IVC suggesting a degree of right heart failure
Right and left heart cath would be helpful
Patient has not been able to tolerate BiPAP in the past
Continue nebulizer, steroids; wean steroids as tolerated -weaned Decadron on 02/16 to 4 mg IV q12hr (equivalent to 53 mg prednisone daily)--> unfortunately he is worse today, and I will adjust steroids to Solu-Medrol 40mg IV q8hr
Continue DuoNebs and Symbicort 160mcg
Consider chronic macrolide therapy vs Daliresp; will start Zithromax TIW; trend QTc occasionally
Consider more aggressive maintenance inhaler therapy. Will continue with Symbicort for now
Insurance coverage has been a problem
Of note, he says that he eventually wants to follow-up with [facility] to discuss endobronchial valves for his COPD.
Monitor blood sugars
Insulin supplementation as needed
Smoking cessation counseling ongoing
Cut down from 3 packs to 10 cigarettes a day
DVT prophylaxis: Enoxaparin
GI prophylaxis: N/A
Reviewed with nursing, respiratory therapy, and primary team.
Will follow
Total time spent today was 35 minutes for this encounter. Time includes reviewing laboratory test/imaging results, reviewing pertinent medical records, obtaining and reviewing medical history, performing an appropriate exam, ordering medications,
tests and procedures. Time also includes documentation of this encounter, coordinating patient care and communicating with other healthcare professionals. Total time does not include separately billed tests performed on this date of service.
Data:
CTA Chest 02-15-2024:
1. No CTA evidence for an acute pulmonary thromboembolism.
2. Severe emphysema.
Lower Extremity US 02-16-2024:
1. Chronic appearing nonocclusive thrombus within the right lower extremity deep veins as described. No definite acute DVT.
2. No evidence of deep venous thrombosis in the left lower extremity
Subjective Data
-
Date of Service:
Date of Service: February 18, 2024
Chief Complaint: Pulmonary Follow Up
Subjective:
Patient seen today. He said he is having a bad day with more shortness of breath, anxiety and a dry cough. He denies chest pain, headache, abdominal pain fevers or chills.
Review of Systems
General: Other (Negative unless mentioned above)
Objective Data
Data Reviewed
Vital Signs / I&O / Oxygen:
Vital Signs
Temp Pulse Resp BP Pulse Ox
98.1 F 76 22 147/81 96
02/18/24 07:25 02/18/24 07:25 02/18/24 07:25 02/18/24 07:25 02/18/24 08:00
Intake and Output
02/17/24 02/18/24 02/19/24
06:59 06:59 06:59
Intake Total 2039 1614 / 1614
Balance 2039 1614 1614
SaO2 96
Nasal Cannula flow liters per 2
minute
Physical Exam
General: Respiratory Distress (Negative) and Comfortable
HEENT: Normocephalic and Anicteric
Cardiovascular: S1-S2 and Peripheral Edema (Negative)
Respiratory: Wheeze (Negative), Rhonchi (Negative) and Other (Reduced breath sounds bilaterally (L>R); coarse breath sounds bilaterally)
GI: Soft, Non Distended, Non Tender and Normal Bowel Sounds
Neurology: Awake, Alert and Tremors (Negative)
Skin: Warm and Dry
Labs/Micro/Reports
Lab Data
02/16/24 06:33
02/16/24 06:33
[2024-02-18] MEDS: DELTASONE 40 MG PO (15:45)
[2024-02-18 15:50] VITALS: BP 143/81
[2024-02-18] MEDS: LOVENOX 40 MG SC (17:22)
--- NOTE | 2024-02-18 17:34 | CM ---
Will need home oxygen test and oxygen set up if qualifies.
He has uses [facility] in past.
Offer VN at dc.
PLAN Home with possible VN .Watch for home oxygen needs
--- NOTE | 2024-02-18 17:38 | W.PN.HOSP.TC ---
Today's Communication/Plan
-
Extremely anxious with increased work of breathing, although so far no requirements for supplemental oxygen
Exam with minimal wheezing.
Agree with IV steroids
Continue Zithromax.
Continue nebulizers
Adjust lorazepam dosing for anxiety.
Assessment / Plan
Assessment / Plan
Impression:
Acute hypoxic respiratory failure
� Pulse ox is 80% upon presentation
Acute COPD exacerbation.
� Severe emphysema.
100+ pack year history of smoking, ongoing.
Euvolemic hyponatremia.
Anxiety
Conditions prior to admission:
Severe COPD/Gold stage IV
Not on home O2 prior to this presentation
Home regimen including Advair/Spiriva/albuterol as needed
Chronic back pain
Ongoing tobacco smoking
Alcohol use disorder currently in remission
History of SBO with exploratory laparotomy indications patient is a 2018.
Plan:
Acute hypoxic respiratory failure secondary to COPD exacerbation
Noted with increased work of breathing and with exertional dyspnea.
Currently on nasal cannula oxygen supplementation at 2 L with no evidence of distress
Exam with coarse rhonchi and wheezing
Imaging including chest CT with no parenchymal abnormalities other than severe emphysema and hyperinflation. Negative for pulmonary embolism.
Lower extremity Doppler with chronic right lower extremity DVT
Continue Zithromax.
Continue systemic steroids changed to IV Solu-Medrol
Continue budesonide/formoterol
Continue DuoNebs
Severely anxious. Will add low-dose of lorazepam to treat anxiety and hopefully decrease work of breathing.
Continue PPI
Continue DVT prophylaxis with Lovenox
Anticipated Discharge: 24 - 48 hours
Subjective/Interval History
-
Date of Service: February 18, 2024
Objective Data
-
Vital Signs:
Vital Signs
Temp Pulse Resp BP Pulse Ox
97.6 F 96 22 143/81 97
02/18/24 15:50 02/18/24 15:50 02/18/24 15:50 02/18/24 15:50 02/18/24 15:50
I&O
02/17/24 02/18/24 02/19/24
06:59 06:59 06:59
Intake Total 2039 1614 / 1614 1440 / 1440
Balance 2039 1614 / 1614 1440 / 1440
Physical Exam
-
General: No Apparent Distress
HEENT: Moist Mucous Membranes
Respiratory: Clear to Auscultation
Cardiac: Regular Rhythm and S1/S2; Negative Murmur, Rub or Gallop
GI: Soft, Nontender and Normal Bowel Sounds; Negative Organomegaly
Rectal: Deferred by Provider
Musculoskeletal: No Edema
Skin: Warm and Dry
Neuro: Awake and No Motor Deficits
Psych: Calm
[2024-02-18] MEDS: SOLU-MEDROL PF 40 MG IV (21:06)
[2024-02-18] MEDS: ATIVAN 2 MG PO (21:08)
[2024-02-18 23:18] VITALS: BP 139/79
[2024-02-19] MEDS: ATIVAN 1 MG PO ×3 (01:04→15:01)
[2024-02-19 04:19] LABS: Glucose - Point of Care 134 mg/dl (70-99)
[2024-02-19 04:48] VITALS: BMI 22.7
[2024-02-19] MEDS: DUONEB 3 ML INH ×6 (04:52→23:04)
[2024-02-19] MEDS: SOLU-MEDROL PF 40 MG IV ×3 (05:24→20:56)
[2024-02-19 07:00] VITALS: BP 159/99
[2024-02-19] MEDS: PROTONIX 40 MG PO ×2 (07:50→20:55)
[2024-02-19] MEDS: NICODERM TRANSDERMAL 21 MG TRANSDERM (07:50)
[2024-02-19] MEDS: MUCINEX 1200 MG PO ×2 (07:50→20:54)
[2024-02-19] MEDS: SYMBICORT 160/4.5 MCG INHALER 2 PUFF INH ×2 (07:53→19:33)
--- NOTE | 2024-02-19 12:21 | W.PN.PUL3 ---
Today's Communication / Plan
-
Systemic steroids - start weaning down Solu-Medrol --> lower dose down to prednisone 50 mg time tomorrow
Continue zithromax 500mg TIW with occasional monitoring of QTc
Wean oxygen with walking pulse oximetry prior to discharge
Continue nebulizers
Outpatient pulmonary follow-up; would likely benefit from pulmonary rehab which can be discussed in the office
He admits to having insomnia with difficulty sleeping and falling asleep - will give [place]kinien x 1 tonight
Hopefully patient can be discharged in the next 1-2 days
Assessment
-
63-year-old male with severe end-stage COPD, was followed by [facility] now transferred care to [facility], 100+ pack-year history of smoking ongoing presents with acute shortness of breath, acute onset middle of the night.
Multiple ED visits for shortness of breath noted, recently 02/12/2024, failed outpatient therapy with steroid, Zithromax. We are asked to comment on pulmonary process
Impression:
Acute hypoxic respiratory insufficiency, 80% at home per EMS
Not on home oxygen
Sinus tachycardia, P pulmonale
Normal echocardiogram 12/13/[address] PE study
Severe emphysema
Hyperinflation, DLCO 17%, RV 149%, FEV1 23%
100+ pack-year history of smoking, ongoing
Hyponatremia - now resolved as of 02/16/2024
Midepigastric pain on exam - improved
Left apical nodule 6 mm in the past
Left lower lobe nodule per recent CT chest 02/15/2024
Chronic LLE DVT
Conditions present prior to admission:
COPD-reportedly severe suspect Gold stage IV-taking care of by [facility]
Maintained on Advair, Spiriva and albuterol as needed
Chronic back pain. Laminectomy in the past
Alcohol use disorder-in remission
Specifically no history of CAD, renal, gastrointestinal or neurologic disease
Exploratory laparotomy-lysis of adhesions 2018. Incisional herniography. OR internal fixation of mandible-fractured jaw. Lumbar laminectomy and discectomy x4.
Plan/recommendations
At this time, patient feels symptoms have overall improved although he is having a bad day yet again today. He says is worse than today, and it seems to correlate with the raised dose of steroids.
Previously: Patient described acute onset of difficulty breathing when getting up to go to the bathroom. This appears to occur intermittently primarily at night
Unfortunately continues to smoke but has cut down from 3 packs down to 10 cigarettes.
Chest exam with poor air movement
CTA chest from 02/15/2024 without acute PE
There is a left lower lobe nodular infiltrate/nodule, described as subsegmental atelectasis per radiologist
Moving forward
Respiratory status worse today, but is seemingly related to his anxiety which is uncontrolled and possibly related to steroids
I will start to wean down his steroids starting today
He continues to be SOB with activity and uses 2 L/min nasal cannula intermittently for comfort
Patient has had intermittent elevated troponins in the past - serial troponin negative x4
Unclear whether patient requires more of a cardiac workup. Clearly has pulmonary disease to explain his symptoms but episodic nature and rapid onset is a bit unusual for COPD
No Prior CT imaging in 2022 suggest reflux of contrast in the right atrium into the IVC suggesting a degree of right heart failure
Right and left heart cath would be helpful
Once steroids are reduced, if he continues to have uncontrolled anxiety then would recommend psychiatry consultation
Patient has not been able to tolerate BiPAP in the past
Continue nebulizer, steroids; wean steroids as tolerated -weaned Decadron on 02/16 to 4 mg IV q12hr (equivalent to 53 mg prednisone daily)--> unfortunately he was worse on 02/17 and I raised steroids to Solu-Medrol 40mg IV q8hr --> now reduce dose and
start prednisone tomorrow
Continue DuoNebs and Symbicort 160mcg
Started zithromax TIW for refractory COPD - trend QTc occasionally
Consider more aggressive maintenance inhaler therapy. Will continue with Symbicort for now
Insurance coverage has been a problem
Of note, he says that he eventually wants to follow-up with [facility] to discuss endobronchial valves for his COPD.
Monitor blood sugars
Insulin supplementation as needed
Smoking cessation counseling ongoing
Cut down from 3 packs to 10 cigarettes a day
DVT prophylaxis: Enoxaparin
GI prophylaxis: N/A
Reviewed with nursing, respiratory therapy, and primary team.
Will follow
Total time spent today was 35 minutes for this encounter. Time includes reviewing laboratory test/imaging results, reviewing pertinent medical records, obtaining and reviewing medical history, performing an appropriate exam, ordering medications,
tests and procedures. Time also includes documentation of this encounter, coordinating patient care and communicating with other healthcare professionals. Total time does not include separately billed tests performed on this date of service.
Data:
CTA Chest 02-15-2024:
1. No CTA evidence for an acute pulmonary thromboembolism.
2. Severe emphysema.
Lower Extremity US 02-16-2024:
1. Chronic appearing nonocclusive thrombus within the right lower extremity deep veins as described. No definite acute DVT.
2. No evidence of deep venous thrombosis in the left lower extremity
Subjective Data
-
Date of Service:
Date of Service: February 19, 2024
Chief Complaint: Pulmonary Follow Up
Subjective:
Patient seen and evaluated today at bedside. He says he is having much more anxiety today. He denies panic attacks but his anxiety does come in waves. When I saw him he was on room air breathing comfortably. He denies chest pain, headache,
abdominal pain, nausea, fevers or chills.
Review of Systems
General: Other (Negative unless mentioned above)
Objective Data
Data Reviewed
Vital Signs / I&O / Oxygen:
Vital Signs
Temp Pulse Resp BP Pulse Ox
97.7 F 79 22 159/99 94
02/19/24 07:00 02/19/24 07:55 02/19/24 07:55 02/19/24 07:00 02/19/24 08:00
Intake and Output
02/18/24 02/19/24 02/20/24
06:59 06:59 06:59
Intake Total 1614 / 1614 2039
Balance 1614 / 1614 2039
SaO2 94
Nasal Cannula flow liters per 2
minute
Physical Exam
General: Respiratory Distress (Negative) and Comfortable
HEENT: Normocephalic and Anicteric
Cardiovascular: S1-S2 and Peripheral Edema (Negative)
Respiratory: Wheeze (Negative), Rhonchi (Negative) and Other (Reduced breath sounds bilaterally (L>R); coarse breath sounds bilaterally)
GI: Soft, Non Distended, Non Tender and Normal Bowel Sounds
Neurology: Awake, Alert, Tremors (Negative) and Other (Anxious appearing)
Skin: Warm and Dry
Labs/Micro/Reports
Lab Data
02/16/24 06:33
02/16/24 06:33
[2024-02-19 13:14] LABS: Glucose - Point of Care 174 mg/dl (70-99)
[2024-02-19 13:35] VITALS: PULSE 103; O2SAT 97
[2024-02-19 15:00] VITALS: BP 141/83
[2024-02-19 17:09] LABS: Glucose - Point of Care 119 mg/dl (70-99)
[2024-02-19] MEDS: LOVENOX 40 MG SC (17:19)
[2024-02-19] MEDS: NOVOLOG FLEXPEN-LOW RESISTANCE SC (17:28)
--- NOTE | 2024-02-19 18:52 | W.PN.HOSP.TC ---
Today's Communication/Plan
-
IV steroids.
Relatively stable respiratory status with no requirements of supplemental oxygen at least at rest, although with visible dyspnea with exertion.
Extremely anxious and likely function of ongoing corticosteroid therapy
Increase lorazepam.
Assessment / Plan
Assessment / Plan
Impression:
Acute hypoxic respiratory failure
� Pulse ox is 80% upon presentation
Acute COPD exacerbation.
� Severe emphysema.
100+ pack year history of smoking, ongoing.
Euvolemic hyponatremia.
Anxiety
Conditions prior to admission:
Severe COPD/Gold stage IV
Not on home O2 prior to this presentation
Home regimen including Advair/Spiriva/albuterol as needed
Chronic back pain
Ongoing tobacco smoking
Alcohol use disorder currently in remission
History of SBO with exploratory laparotomy indications patient is a 2018.
Plan:
Acute hypoxic respiratory failure secondary to COPD exacerbation
Noted with increased work of breathing and with exertional dyspnea.
Currently on nasal cannula oxygen supplementation at 2 L with no evidence of distress
Exam with coarse rhonchi and wheezing
Imaging including chest CT with no parenchymal abnormalities other than severe emphysema and hyperinflation. Negative for pulmonary embolism.
Lower extremity Doppler with chronic right lower extremity DVT
Continue Zithromax.
Continue systemic steroids changed to IV Solu-Medrol
Continue budesonide/formoterol
Continue DuoNebs
Severely anxious. Will add low-dose of lorazepam to treat anxiety and hopefully decrease work of breathing.
Continue PPI
Continue DVT prophylaxis with Lovenox
Anticipated Discharge: 24 - 48 hours
Subjective/Interval History
-
Date of Service: February 19, 2024
Objective Data
-
Vital Signs:
Vital Signs
Temp Pulse Resp BP Pulse Ox
97.9 F 98 22 141/83 95
02/19/24 15:00 02/19/24 15:00 02/19/24 15:00 02/19/24 15:00 02/19/24 15:00
I&O
02/18/24 02/19/24 02/20/24
06:59 06:59 06:59
Intake Total 1614 / 1614 2039 960 / 960
Balance 1614 / 1614 2039 960 / 960
Physical Exam
-
General: No Apparent Distress
HEENT: Moist Mucous Membranes
Respiratory: Clear to Auscultation
Cardiac: Regular Rhythm and S1/S2; Negative Murmur, Rub or Gallop
GI: Soft, Nontender and Normal Bowel Sounds; Negative Organomegaly
Rectal: Deferred by Provider
Musculoskeletal: No Edema
Skin: Warm and Dry
Neuro: Awake and No Motor Deficits
Psych: Calm
[2024-02-19] MEDS: ATIVAN 2 MG PO (20:55)
[2024-02-19] MEDS: AMBIEN 5 MG PO (20:55)
[2024-02-19 21:33] LABS: Glucose - Point of Care 166 mg/dl (70-99)
[2024-02-19 23:54] VITALS: BP 127/75
[2024-02-20] MEDS: DUONEB 3 ML INH ×5 (05:13→17:52)
[2024-02-20 06:00] VITALS: BMI 22.7
[2024-02-20 07:25] VITALS: BP 142/81
[2024-02-20 07:42] LABS: Glucose - Point of Care 130 mg/dl (70-99)
[2024-02-20] MEDS: SYMBICORT 160/4.5 MCG INHALER 2 PUFF INH ×2 (07:52→17:53)
[2024-02-20] MEDS: NOVOLOG FLEXPEN-LOW RESISTANCE SC ×2 (08:27→17:46)
[2024-02-20] MEDS: MUCINEX 1200 MG PO ×2 (08:28→20:37)
[2024-02-20] MEDS: DELTASONE 50 MG PO (08:28)
[2024-02-20] MEDS: FLUSH (NSS) 1 FLUSH IV (08:28)
[2024-02-20] MEDS: NICODERM TRANSDERMAL 21 MG TRANSDERM (08:28)
[2024-02-20] MEDS: PROTONIX 40 MG PO ×2 (08:29→20:37)
[2024-02-20] MEDS: ATIVAN 1 MG PO ×3 (08:29→18:54)
[2024-02-20] MEDS: ZITHROMAX 500 MG PO (08:30)
[2024-02-20 10:32] LABS: % Basophils 0.2 % (0-2); % Immature Granulocytes 1.7 % (0-0.5); % Lymphocytes 7.5 % (20.5-51.1); % Monocytes 8.1 % (1.7-9.3); % Neutrophils 82.5 % (42.2-75.2); Absolute Immature Granulocytes 0.2 10^3/uL (0-0.05); Absolute Monocytes 1.1 10^3/uL (0.1-0.6); Absolute Neutrophils 10.8 10^3/uL (1.4-6.5); Hematocrit 39.1 % (39.0-52.0); Hemoglobin 13.8 g/dL (13.0-18.0); Mean Corp Hgb Conc. 35.3 g/dL (33.0-37.0); Mean Corpuscular Hgb 31.5 pg (27.0-31.0); Mean Corpuscular Volume 89.3 fL (80.0-94.0); Mean Platelet Volume 9.5 fL (7.4-10.4); Nucleated Red Blood Cells % 0 % (-); Platelet Count 267 10^3/uL (130-400); Red Blood Cell Count 4.38 10^6/uL (4.70-6.10); Red Cell Dist. Width 12.1 % (11.5-14.5); White Blood Cell Count 13.1 10^3/uL (4.8-10.8)
--- NOTE | 2024-02-20 12:31 | W.PN.PUL3 ---
Today's Communication / Plan
-
Systemic steroids - lowered dose down to prednisone 50 mg with slow taper starting today
Continue zithromax 500mg TIW with occasional monitoring of QTc
Wean oxygen with walking pulse oximetry prior to discharge
Continue nebulizers
Outpatient pulmonary follow-up; would likely benefit from pulmonary rehab which can be discussed in the office
He admits to having insomnia with difficulty sleeping and falling asleep - gave Ambien x 1 last night
Trial of mucloytics with nebulized mucomyst + vest therapy
Recommend coronary ischemic evaluation if pt does not improve by Friday
Assessment
-
63-year-old male with severe end-stage COPD, was followed by [facility] now transferred care to [facility], 100+ pack-year history of smoking ongoing presents with acute shortness of breath, acute onset middle of the night.
Multiple ED visits for shortness of breath noted, recently 02/12/2024, failed outpatient therapy with steroid, Zithromax. We are asked to comment on pulmonary process
Impression:
Acute hypoxic respiratory insufficiency, 80% at home per EMS
Not on home oxygen
Sinus tachycardia, P pulmonale
Normal echocardiogram 12/13/[address] PE study
Severe emphysema
Hyperinflation, DLCO 17%, RV 149%, FEV1 23%
100+ pack-year history of smoking, ongoing
Hyponatremia - now resolved as of 02/16/2024
Midepigastric pain on exam - improved
Left apical nodule 6 mm in the past
Left lower lobe nodule per recent CT chest 02/15/2024
Chronic LLE DVT
Anxiety disorder
Conditions present prior to admission:
COPD-reportedly severe suspect Gold stage IV-taking care of by [facility]
Maintained on Advair, Spiriva and albuterol as needed
Chronic back pain. Laminectomy in the past
Alcohol use disorder-in remission
Specifically no history of CAD, renal, gastrointestinal or neurologic disease
Exploratory laparotomy-lysis of adhesions 2018. Incisional herniography. OR internal fixation of mandible-fractured jaw. Lumbar laminectomy and discectomy x4.
Plan/recommendations
At this time, patient feels symptoms have overall improved although he says he is having lots of anxiety with shortness of breath, hard to say which one is causing what
On 02/18 there was concern for steroid-induced anxiety so steroids were reduced and are now on prednisone taper starting at 50 mg
Previously: Patient described acute onset of difficulty breathing when getting up to go to the bathroom. This appears to occur intermittently primarily at night
Unfortunately continues to smoke but has cut down from 3 packs down to 10 cigarettes.
Chest exam with poor air movement
CTA chest from 02/15/2024 without acute PE
There is a left lower lobe nodular infiltrate/nodule, described as subsegmental atelectasis per radiologist
Moving forward
Respiratory status worse, but is seemingly related to his anxiety which is uncontrolled and possibly related to steroids
I weaned down his steroids starting, now on prednisone 50 mg daily with wean by 10 mg every fourth day
He seems to have difficulty expectorating � I will start vest therapy with nebulized Mucomyst to be given with DuoNebs
He continues to be SOB with activity and uses 2 L/min nasal cannula intermittently for comfort
Patient has had intermittent elevated troponins in the past - serial troponin negative x4
Unclear whether patient requires more of a cardiac workup. Clearly has pulmonary disease to explain his symptoms but episodic nature and rapid onset is a bit unusual for COPD
No Prior CT imaging in 2022 suggest reflux of contrast in the right atrium into the IVC suggesting a degree of right heart failure
Right and left heart cath would be helpful, especially if he does not improve with vest therapy, mucolytics, or systemic steroids
If he continues to have uncontrolled anxiety then would recommend psychiatry consultation
Patient has not been able to tolerate BiPAP in the past
Continue nebulizer, steroids; wean steroids as tolerated -weaned Decadron on 02/16 to 4 mg IV q12hr (equivalent to 53 mg prednisone daily)--> unfortunately he was worse on 02/17 and I raised steroids to Solu-Medrol 40mg IV q8hr --> started prednisone
taper today
Continue DuoNebs and Symbicort 160mcg
Started zithromax TIW for refractory COPD - trend QTc occasionally
Consider more aggressive maintenance inhaler therapy. Will continue with Symbicort for now
Insurance coverage has been a problem
Of note, he says that he eventually wants to follow-up with [facility] to discuss endobronchial valves for his COPD.
Monitor blood sugars
Insulin supplementation as needed
Smoking cessation counseling ongoing
Cut down from 3 packs to 10 cigarettes a day
DVT prophylaxis: Enoxaparin
GI prophylaxis: N/A
Will follow
Total time spent today was 50 minutes for this encounter. Time includes reviewing laboratory test/imaging results, reviewing pertinent medical records, obtaining and reviewing medical history, performing an appropriate exam, ordering medications,
tests and procedures. Time also includes documentation of this encounter, coordinating patient care and communicating with other healthcare professionals. Total time does not include separately billed tests performed on this date of service.
Data:
CTA Chest 02-15-2024:
1. No CTA evidence for an acute pulmonary thromboembolism.
2. Severe emphysema.
Lower Extremity US 02-16-2024:
1. Chronic appearing nonocclusive thrombus within the right lower extremity deep veins as described. No definite acute DVT.
2. No evidence of deep venous thrombosis in the left lower extremity
Subjective Data
-
Date of Service:
Date of Service: February 20, 2024
Chief Complaint: Pulmonary Follow Up
Subjective:
Patient seen and evaluated today at bedside. Afebrile overnight. Leukocytosis improving. He still feels short of breath, difficulty expectorating. Very anxious which he says is because he has difficulty getting out of breath. He otherwise
denies headache, abdominal pain, nausea, fevers or chills.
Review of Systems
General: Other (Negative unless mentioned above)
Objective Data
Data Reviewed
Vital Signs / I&O / Oxygen:
Vital Signs
Temp Pulse Resp BP Pulse Ox
97.9 F 90 22 142/81 95
02/20/24 07:25 02/20/24 11:24 02/20/24 07:55 02/20/24 07:25 02/20/24 08:15
Intake and Output
02/19/24 02/20/24 02/21/24
06:59 06:59 06:59
Intake Total 2039 960 / 960
Balance 2039 960 / 960
SaO2 95
Nasal Cannula flow liters per 2
minute
Physical Exam
General: Respiratory Distress (Negative) and Comfortable
HEENT: Normocephalic and Anicteric
Cardiovascular: S1-S2 and Peripheral Edema (Negative)
Respiratory: Wheeze (Negative), Crackles (Negative), Rhonchi (Negative), Non-Labored Respirations and Other (Poor inspiratory effort with prolonged expiratory phase)
GI: Soft, Non Distended, Non Tender and Normal Bowel Sounds
Neurology: Awake, Alert, Tremors (Negative) and Other (Anxious appearing)
Skin: Warm and Dry
Labs/Micro/Reports
Lab Data
02/20/24 10:26
02/16/24 06:33
[2024-02-20 12:50] LABS: Glucose - Point of Care 184 mg/dl (70-99)
[2024-02-20] MEDS: NOVOLOG FLEXPEN-LOW RESISTANCE 1 UNITS SC (13:19)
[2024-02-20] MEDS: LEXAPRO 20 MG PO (14:52)
[2024-02-20 15:11] VITALS: O2SAT 95
[2024-02-20 15:15] VITALS: BP 124/82
--- NOTE | 2024-02-20 15:24 | PTOTSP ---
The patient is independent with ambulation and elevations, requiring rest breaks due to shortness of breath. The patient is at his functional baseline, PT will sign off.
[2024-02-20 16:36] LABS: Glucose - Point of Care 135 mg/dl (70-99)
--- NOTE | 2024-02-20 16:49 | CM ---
met with patient at bedside. continue nebs,iv stroids,zithromax,sating okay on ra.referral [facility] to [facility].he lives at [address] in [place].gave this info to home care.Plan home with [facility].
--- NOTE | 2024-02-20 18:07 | W.PN.HOSP.TC ---
Today's Communication/Plan
-
Prednisone taper
Nebulizer
Lorazepam for anxiety, dose increased
Start Lexapro.
Assessment / Plan
Assessment / Plan
Impression:
Acute hypoxic respiratory failure
� Pulse ox is 80% upon presentation
Acute COPD exacerbation.
� Severe emphysema.
100+ pack year history of smoking, ongoing.
Euvolemic hyponatremia.
Anxiety
Conditions prior to admission:
Severe COPD/Gold stage IV
Not on home O2 prior to this presentation
Home regimen including Advair/Spiriva/albuterol as needed
Chronic back pain
Ongoing tobacco smoking
Alcohol use disorder currently in remission
History of SBO with exploratory laparotomy indications patient is a 2016.
Plan:
Acute hypoxic respiratory failure secondary to COPD exacerbation
Noted with increased work of breathing and with exertional dyspnea.
Currently on nasal cannula oxygen supplementation at 2 L with no evidence of distress
Exam with coarse rhonchi and wheezing
Imaging including chest CT with no parenchymal abnormalities other than severe emphysema and hyperinflation. Negative for pulmonary embolism.
Lower extremity Doppler with chronic right lower extremity DVT
Continue Zithromax.
Continue systemic steroids changed to IV Solu-Medrol
Continue budesonide/formoterol
Continue DuoNebs
Severely anxious. Will add low-dose of lorazepam to treat anxiety and hopefully decrease work of breathing.
Continue PPI
Continue DVT prophylaxis with Lovenox
Severe anxiety possibly potentiated by corticosteroids
Continue lorazepam, dose increased
Start Lexapro
Anticipated Discharge: 24 - 48 hours
Subjective/Interval History
-
Date of Service: February 20, 2024
Objective Data
-
Labs:
Laboratory Results
02/20/24
10:26
WBC 13.1 H
Hgb 13.8
Hct 39.1
Plt Count 267
Vital Signs:
Vital Signs
Temp Pulse Resp BP Pulse Ox
97.4 F 102 18 124/82 93
02/20/24 15:15 02/20/24 17:55 02/20/24 17:55 02/20/24 15:15 02/20/24 17:55
I&O
02/19/24 02/20/24 02/21/24
06:59 06:59 06:59
Intake Total 2039 960 / 960
Balance 2039 960 / 960
Physical Exam
-
General: No Apparent Distress
HEENT: Moist Mucous Membranes
Respiratory: Clear to Auscultation
Cardiac: Regular Rhythm and S1/S2; Negative Murmur, Rub or Gallop
GI: Soft, Nontender and Normal Bowel Sounds; Negative Organomegaly
Rectal: Deferred by Provider
Musculoskeletal: No Edema
Skin: Warm and Dry
Neuro: Awake and No Motor Deficits
Psych: Calm
[2024-02-20] MEDS: LOVENOX 40 MG SC (18:55)
[2024-02-20 21:58] LABS: Glucose - Point of Care 170 mg/dl (70-99)
[2024-02-20] MEDS: ATIVAN 2 MG PO (22:23)
[2024-02-20 23:32] VITALS: BP 154/95
[2024-02-21] MEDS: DUONEB 3 ML INH ×5 (00:31→20:52)
[2024-02-21] MEDS: TUMS 1 TABLET PO (00:47)
[2024-02-21] MEDS: ATIVAN 1 MG PO ×4 (02:44→17:18)
[2024-02-21 06:00] VITALS: BMI 23.0
[2024-02-21 07:00] LABS: Glucose - Point of Care 89 mg/dl (70-99)
[2024-02-21 07:20] VITALS: BP 158/86
[2024-02-21] MEDS: SYMBICORT 160/4.5 MCG INHALER 2 PUFF INH ×2 (07:34→20:53)
[2024-02-21] MEDS: MUCOMYST 10% 4 ML INH ×4 (07:34→20:53)
[2024-02-21] MEDS: PROTONIX 40 MG PO ×2 (07:40→20:22)
[2024-02-21] MEDS: NICODERM TRANSDERMAL 21 MG TRANSDERM (07:41)
[2024-02-21] MEDS: LEXAPRO 20 MG PO (07:41)
[2024-02-21] MEDS: MUCINEX 1200 MG PO ×2 (07:41→20:22)
[2024-02-21] MEDS: DELTASONE 50 MG PO (07:43)
[2024-02-21] MEDS: NOVOLOG FLEXPEN-LOW RESISTANCE SC ×2 (07:45→11:34)
--- NOTE | 2024-02-21 10:41 | W.PN.PUL3 ---
Today's Communication / Plan
-
SOB ongoing, anxiety a factor
Stable on RA, no need for O2 at home
Prednisone taper continued
Encouraged further smoking cessation
Outpatient pulmonary FU recommended
Hopefully discharge in next 24 hours
Assessment
-
63-year-old male with severe end-stage COPD, was followed by [facility] now transferred care to [facility], 100+ pack-year history of smoking ongoing presents with acute shortness of breath, acute onset middle of the night.
Multiple ED visits for shortness of breath noted, recently 02/12/2024, failed outpatient therapy with steroid, Zithromax. We are asked to comment on pulmonary process
Impression:
Acute hypoxic respiratory insufficiency, 80% at home per EMS
Not on home oxygen
Sinus tachycardia, P pulmonale
Normal echocardiogram 12/13/[address] PE study
Severe emphysema
Hyperinflation, DLCO 17%, RV 149%, FEV1 23%
100+ pack-year history of smoking, ongoing
Hyponatremia - now resolved as of 02/16/2024
Midepigastric pain on exam - improved
Left apical nodule 6 mm in the past
Left lower lobe nodule per recent CT chest 02/15/2024
Chronic LLE DVT
Anxiety disorder
Conditions present prior to admission:
COPD-reportedly severe suspect Gold stage IV-taking care of by [facility]
Maintained on Advair, Spiriva and albuterol as needed
Chronic back pain. Laminectomy in the past
Alcohol use disorder-in remission
Specifically no history of CAD, renal, gastrointestinal or neurologic disease
Exploratory laparotomy-lysis of adhesions 2018. Incisional herniography. OR internal fixation of mandible-fractured jaw. Lumbar laminectomy and discectomy x4.
Plan/recommendations
Stable on RA, home O2 eval 02/17 shows no need for home use
At this time, patient feels symptoms have overall improved although he says he is having lots of anxiety with shortness of breath, hard to say which one is causing what
On 02/18 there was concern for steroid-induced anxiety so steroids were reduced and are now on prednisone taper starting at 50 mg
Previously: Patient described acute onset of difficulty breathing when getting up to go to the bathroom. This appears to occur intermittently primarily at night
Unfortunately continues to smoke but has cut down from 3 packs down to 10 cigarettes.
Chest exam with poor air movement
CTA chest from 02/15/2024 without acute PE
There is a left lower lobe nodular infiltrate/nodule, described as subsegmental atelectasis per radiologist
Respiratory status related to his anxiety which is uncontrolled and possibly related to steroids
I weaned down his steroids starting, now on prednisone 50 mg daily with wean by 10 mg every fourth day
Patient has had intermittent elevated troponins in the past - serial troponin negative x4
Unclear whether patient requires more of a cardiac workup. Clearly has pulmonary disease to explain his symptoms but episodic nature and rapid onset is a bit unusual for COPD
If he continues to have uncontrolled anxiety then would recommend psychiatry consultation
Lexapro started by primary team
Patient has not been able to tolerate BiPAP in the past
Started zithromax TIW for refractory COPD - trend QTc occasionally
Consider more aggressive maintenance inhaler therapy. Will continue with Symbicort for now
Insurance coverage has been a problem
Of note, he says that he eventually wants to follow-up with [facility] to discuss endobronchial valves for his COPD.
Monitor blood sugars
Insulin supplementation as needed
Smoking cessation counseling ongoing
Cut down from 3 packs to 10 cigarettes a day
DVT prophylaxis: Enoxaparin
GI prophylaxis: N/A
Data:
CTA Chest 02-15-2024:
1. No CTA evidence for an acute pulmonary thromboembolism.
2. Severe emphysema.
Lower Extremity US 02-16-2024:
1. Chronic appearing nonocclusive thrombus within the right lower extremity deep veins as described. No definite acute DVT.
2. No evidence of deep venous thrombosis in the left lower extremity
Subjective Data
-
Date of Service:
Date of Service: February 21, 2024
Chief Complaint: Pulmonary Follow Up
Subjective:
Still SOB, stable on RA/at rest
Does not feel ready to go home
Objective Data
Data Reviewed
Vital Signs / I&O / Oxygen:
Vital Signs
Temp Pulse Resp BP Pulse Ox
98.7 F 78 16 158/86 94
02/21/24 07:20 02/21/24 08:01 02/21/24 08:01 02/21/24 07:20 02/21/24 08:01
Intake and Output
02/20/24 02/21/24 02/22/24
06:59 06:59 06:59
Intake Total 960 / 960 720 / 720
Balance 960 / 960 720 / 720
SaO2 94
Nasal Cannula flow liters per 2
minute
Physical Exam
General: Respiratory Distress (Negative), Comfortable, Good Appetite and Other (anxious)
HEENT: Normocephalic and Anicteric
Cardiovascular: S1-S2, Regular Rhythm and Peripheral Edema (Negative)
Respiratory: Wheeze (Negative), Crackles (Negative), Rhonchi (Negative), Non-Labored Respirations and Other (Poor inspiratory effort with prolonged expiratory phase)
GI: Soft, Non Distended, Non Tender and Normal Bowel Sounds
Neurology: Awake, Alert, Oriented, AO x 3, Tremors (Negative) and Other (Anxious appearing)
Skin: Warm and Dry
Labs/Micro/Reports
Lab Data
02/20/24 10:26
02/16/24 06:33
[2024-02-21 11:33] LABS: Glucose - Point of Care 95 mg/dl (70-99)
--- NOTE | 2024-02-21 14:40 | W.PN.HOSP.TC ---
Today's Communication/Plan
-
Taper steroids.
Continue lorazepam/Lexapro.
Increase activity.
Assessment / Plan
Assessment / Plan
Impression:
Acute hypoxic respiratory failure
� Pulse ox is 80% upon presentation
Acute COPD exacerbation.
� Severe emphysema.
100+ pack year history of smoking, ongoing.
Euvolemic hyponatremia.
Anxiety
Conditions prior to admission:
Severe COPD/Gold stage IV
Not on home O2 prior to this presentation
Home regimen including Advair/Spiriva/albuterol as needed
Chronic back pain
Ongoing tobacco smoking
Alcohol use disorder currently in remission
History of SBO with exploratory laparotomy indications patient is a 2016.
Plan:
Acute hypoxic respiratory failure secondary to COPD exacerbation
Noted with increased work of breathing and with exertional dyspnea.
Currently on nasal cannula oxygen supplementation at 2 L with no evidence of distress
Exam with coarse rhonchi and wheezing
Imaging including chest CT with no parenchymal abnormalities other than severe emphysema and hyperinflation. Negative for pulmonary embolism.
Lower extremity Doppler with chronic right lower extremity DVT
Continue Zithromax.
Continue systemic steroids changed to IV Solu-Medrol
Continue budesonide/formoterol
Continue DuoNebs
Severely anxious. Will add low-dose of lorazepam to treat anxiety and hopefully decrease work of breathing.
Continue PPI
Continue DVT prophylaxis with Lovenox
Severe anxiety possibly potentiated by corticosteroids
Continue lorazepam, dose increased
Started on Lexapro
Anticipated Discharge: 24 - 48 hours
Subjective/Interval History
-
Date of Service: February 21, 2024
Objective Data
-
Vital Signs:
Vital Signs
Temp Pulse Resp BP Pulse Ox
98.7 F 96 16 158/86 98
02/21/24 07:20 02/21/24 11:33 02/21/24 11:33 02/21/24 07:20 02/21/24 11:33
I&O
02/20/24 02/21/24 02/22/24
06:59 06:59 06:59
Intake Total 960 / 960 720 / 720
Balance 960 / 960 720 / 720
Physical Exam
-
General: No Apparent Distress
HEENT: Moist Mucous Membranes
Respiratory: Clear to Auscultation
Cardiac: Regular Rhythm and S1/S2; Negative Murmur, Rub or Gallop
GI: Soft, Nontender and Normal Bowel Sounds; Negative Organomegaly
Rectal: Deferred by Provider
Musculoskeletal: No Edema
Skin: Warm and Dry
Neuro: Awake and No Motor Deficits
Psych: Calm
[2024-02-21 15:15] VITALS: BP 126/79
[2024-02-21 16:06] LABS: Glucose - Point of Care 280 mg/dl (70-99)
[2024-02-21] MEDS: NOVOLOG FLEXPEN-LOW RESISTANCE 3 UNITS SC (16:10)
[2024-02-21 16:53] LABS: Glucose - Point of Care 156 mg/dl (70-99)
[2024-02-21] MEDS: LOVENOX 40 MG SC (17:18)
[2024-02-21 18:27] LABS: Glucose - Point of Care 159 mg/dl (70-99)
[2024-02-21 21:42] LABS: Glucose - Point of Care 126 mg/dl (70-99)
[2024-02-21] MEDS: ATIVAN PO (23:20)
[2024-02-21 23:46] VITALS: BP 126/75
[2024-02-22] MEDS: ATIVAN 1 MG PO ×4 (02:11→16:53)
[2024-02-22 05:34] VITALS: BMI 22.8
[2024-02-22] MEDS: DUONEB 3 ML INH ×3 (07:14→19:21)
[2024-02-22 07:15] LABS: Glucose - Point of Care 133 mg/dl (70-99)
[2024-02-22] MEDS: MUCOMYST 10% 4 ML INH ×2 (07:15→11:32)
[2024-02-22] MEDS: SYMBICORT 160/4.5 MCG INHALER 2 PUFF INH ×2 (07:15→19:20)
[2024-02-22 07:20] VITALS: BP 134/75
[2024-02-22] MEDS: NOVOLOG FLEXPEN-LOW RESISTANCE SC ×2 (08:01→11:41)
[2024-02-22] MEDS: NICODERM TRANSDERMAL 21 MG TRANSDERM (08:26)
[2024-02-22] MEDS: LEXAPRO 20 MG PO (08:26)
[2024-02-22] MEDS: DELTASONE 50 MG PO (08:26)
[2024-02-22] MEDS: MUCINEX 1200 MG PO ×2 (08:26→20:37)
[2024-02-22] MEDS: PROTONIX 40 MG PO ×2 (08:27→20:37)
[2024-02-22 08:31] VITALS: BP 134/75
--- NOTE | 2024-02-22 11:02 | W.PN.PUL3 ---
Today's Communication / Plan
-
Stable on RA, no need for O2
SOB ongoing, but this seems anxiety related
We discussed the importance of staying active/OOB/PT/ambulating
Appropriate for discharge and recommend OP FU
Assessment
-
63-year-old male with severe end-stage COPD, was followed by [facility] now transferred care to [facility], 100+ pack-year history of smoking ongoing presents with acute shortness of breath, acute onset middle of the night.
Multiple ED visits for shortness of breath noted, recently 02/12/2024, failed outpatient therapy with steroid, Zithromax. We are asked to comment on pulmonary process
Impression:
Acute hypoxic respiratory insufficiency, 80% at home per EMS
Not on home oxygen
Sinus tachycardia, P pulmonale
Normal echocardiogram 12/13/[address] PE study
Severe emphysema
Hyperinflation, DLCO 17%, RV 149%, FEV1 23%
100+ pack-year history of smoking, ongoing
Hyponatremia - now resolved as of 02/16/2024
Midepigastric pain on exam - improved
Left apical nodule 6 mm in the past
Left lower lobe nodule per recent CT chest 02/15/2024
Chronic LLE DVT
Anxiety disorder
Conditions present prior to admission:
COPD-reportedly severe suspect Gold stage IV-taking care of by [facility]
Maintained on Advair, Spiriva and albuterol as needed
Chronic back pain. Laminectomy in the past
Alcohol use disorder-in remission
Specifically no history of CAD, renal, gastrointestinal or neurologic disease
Exploratory laparotomy-lysis of adhesions 2018. Incisional herniography. OR internal fixation of mandible-fractured jaw. Lumbar laminectomy and discectomy x4.
Plan/recommendations
Stable on RA, home O2 eval 02/17 shows no need for home use
Wants to place O2 on for anxiety
At this time, patient feels symptoms have overall improved although he says he is having lots of anxiety with shortness of breath, hard to say which one is causing what
On 02/18 there was concern for steroid-induced anxiety so steroids were reduced and are now on prednisone taper starting at 50 mg
Previously: Patient described acute onset of difficulty breathing when getting up to go to the bathroom. This appears to occur intermittently primarily at night
Unfortunately continues to smoke but has cut down from 3 packs down to 10 cigarettes.
Chest exam with poor air movement
CTA chest from 02/15/2024 without acute PE
There is a left lower lobe nodular infiltrate/nodule, described as subsegmental atelectasis per radiologist
Respiratory status related to his anxiety which is uncontrolled and possibly related to steroids
I weaned down his steroids starting, now on prednisone 50 mg daily with wean by 10 mg every fourth day
Patient has had intermittent elevated troponins in the past - serial troponin negative x4
Unclear whether patient requires more of a cardiac workup. Clearly has pulmonary disease to explain his symptoms but episodic nature and rapid onset is a bit unusual for COPD
If he continues to have uncontrolled anxiety then would recommend psychiatry consultation
Lexapro started by primary team
Patient has not been able to tolerate BiPAP in the past
Started zithromax TIW for refractory COPD - trend QTc occasionally
Consider more aggressive maintenance inhaler therapy. Will continue with Symbicort for now
Insurance coverage has been a problem
Of note, he says that he eventually wants to follow-up with [facility] to discuss endobronchial valves for his COPD.
Monitor blood sugars
Insulin supplementation as needed
Smoking cessation counseling ongoing
Cut down from 3 packs to 10 cigarettes a day
DVT prophylaxis: Enoxaparin
GI prophylaxis: N/A
Data:
CTA Chest 02-15-2024:
1. No CTA evidence for an acute pulmonary thromboembolism.
2. Severe emphysema.
Lower Extremity US 02-16-2024:
1. Chronic appearing nonocclusive thrombus within the right lower extremity deep veins as described. No definite acute DVT.
2. No evidence of deep venous thrombosis in the left lower extremity
Subjective Data
-
Date of Service:
Date of Service: February 22, 2024
Chief Complaint: Pulmonary Follow Up
Subjective:
remains SOB, not ready to go home
anxious
Objective Data
Data Reviewed
Vital Signs / I&O / Oxygen:
Vital Signs
Temp Pulse Resp BP Pulse Ox
97.9 F 79 20 134/75 99
02/22/24 07:20 02/22/24 07:20 02/22/24 07:20 02/22/24 07:20 02/22/24 07:20
Intake and Output
02/21/24 02/22/24 02/23/24
06:59 06:59 06:59
Intake Total 720 / 720 1620 / 1620
Balance 720 / 720 1620 / 1620
SaO2 99
Nasal Cannula flow liters per 2
minute
Physical Exam
General: Respiratory Distress (Negative), Comfortable, Good Appetite and Other (anxious)
HEENT: Normocephalic and Anicteric
Cardiovascular: S1-S2, Regular Rhythm and Peripheral Edema (Negative)
Respiratory: Wheeze (Negative), Crackles (Negative), Rhonchi (Negative), Non-Labored Respirations and Other (Poor inspiratory effort with prolonged expiratory phase)
GI: Soft, Non Distended, Non Tender and Normal Bowel Sounds
Neurology: Awake, Alert, Oriented, AO x 3, Tremors (Negative) and Other (Anxious appearing)
Skin: Warm and Dry
Labs/Micro/Reports
Lab Data
02/20/24 10:26
02/16/24 06:33
[2024-02-22 11:39] LABS: Glucose - Point of Care 131 mg/dl (70-99)
[2024-02-22 13:15] VITALS: BP 126/80
--- NOTE | 2024-02-22 13:27 | W.PN.HOSP.TC ---
Today's Communication/Plan
-
see note
Assessment / Plan
Assessment / Plan
Impression:
Acute hypoxic respiratory failure
Acute COPD exacerbation.
� Severe emphysema.
100+ pack year history of smoking, ongoing.
Euvolemic hyponatremia.
Anxiety
Conditions prior to admission:
Severe COPD/Gold stage IV
Not on home O2 prior to this presentation
Home regimen including Advair/Spiriva/albuterol as needed
Chronic back pain
Ongoing tobacco smoking
Alcohol use disorder currently in remission
History of SBO with exploratory laparotomy indications patient is a 2018.
Plan:
Acute hypoxic respiratory failure secondary to COPD exacerbation
Noted with increased work of breathing and with exertional dyspnea.
Currently on nasal cannula oxygen supplementation at 2 L with no evidence of distress
Exam with coarse rhonchi and wheezing
Imaging including chest CT with no parenchymal abnormalities other than severe emphysema and hyperinflation. Negative for pulmonary embolism.
Lower extremity Doppler with chronic right lower extremity DVT
Continue Zithromax.
Continue systemic steroids changed to IV Solu-Medrol
Continue budesonide/formoterol
Continue DuoNebs
Severely anxious. Will add low-dose of lorazepam to treat anxiety and hopefully decrease work of breathing.
Continue PPI
Continue DVT prophylaxis with Lovenox
Continue lorazepam
discussed with psychiatrist and recommended to start on SSRI Lexapro versus Zoloft. Already been started on Lexapro by Dr. Bartholomew on 02/20/2024
02/21
Patient dischargeable home although severe anxiety triggered by dyspnea remains a big barrier.
Patient remains at high risk of revisit to ER/readmission due to persistent dyspnea.
Patient at high risk of being becoming benzodiazepine dependent as unfortunately lack insight in his situation. Adamant of any dose adjustment preferably wanting more. Although I agreed to patient I am hesitant to increase it further at this point.
Patient prednisone might be also driving some of this anxiety possibly, his pulmonary symptoms stabilized, will rapidly try to titrate off but prednisone dose to be decreased 30 mg daily from tomorrow
Anticipated Discharge: 24 - 48 hours
Subjective/Interval History
-
Date of Service: February 22, 2024
patient remains anxious
not hypoxic
Objective Data
-
Vital Signs:
Vital Signs
Temp Pulse Resp BP Pulse Ox
97.9 F 86 18 134/75 96
02/22/24 07:20 02/22/24 11:38 02/22/24 11:38 02/22/24 07:20 02/22/24 11:38
I&O
02/21/24 02/22/24 02/23/24
06:59 06:59 06:59
Intake Total 720 / 720 1620 / 1620
Balance 720 / 720 1620 / 1620
Review of Systems
-
All other systems: Reviewed and negative
Physical Exam
-
General: No Apparent Distress
HEENT: Moist Mucous Membranes
Respiratory: Clear to Auscultation
Cardiac: Regular Rhythm and S1/S2; Negative Murmur, Rub or Gallop
GI: Soft, Nontender and Normal Bowel Sounds; Negative Organomegaly
Rectal: Deferred by Provider
Musculoskeletal: No Edema
Skin: Warm and Dry
Neuro: Awake and No Motor Deficits
Psych: Calm
[2024-02-22 15:15] VITALS: BP 126/80
[2024-02-22 16:46] LABS: Glucose - Point of Care 153 mg/dl (70-99)
[2024-02-22] MEDS: NOVOLOG FLEXPEN-LOW RESISTANCE 1 UNITS SC (16:52)
[2024-02-22] MEDS: LOVENOX 40 MG SC (16:53)
[2024-02-22 21:08] LABS: Glucose - Point of Care 211 mg/dl (70-99)
[2024-02-22] MEDS: ATIVAN 2 MG PO (21:20)
[2024-02-22 23:30] VITALS: BP 114/65
[2024-02-23] MEDS: ATIVAN 1 MG PO ×3 (01:42→10:19)
[2024-02-23 04:52] VITALS: BMI 22.9
[2024-02-23] MEDS: SYMBICORT 160/4.5 MCG INHALER 2 PUFF INH (07:12)
[2024-02-23] MEDS: DUONEB 3 ML INH (07:12)
[2024-02-23 07:17] VITALS: BP 138/84
[2024-02-23 07:57] LABS: Glucose - Point of Care 147 mg/dl (70-99)
[2024-02-23] MEDS: NOVOLOG FLEXPEN-LOW RESISTANCE SC (07:59)
[2024-02-23] MEDS: NICODERM TRANSDERMAL 21 MG TRANSDERM (08:03)
[2024-02-23] MEDS: MUCINEX 1200 MG PO (08:03)
[2024-02-23] MEDS: PROTONIX 40 MG PO (08:03)
[2024-02-23] MEDS: LEXAPRO 20 MG PO (08:04)
[2024-02-23] MEDS: ZITHROMAX 500 MG PO (08:05)
[2024-02-23] MEDS: DELTASONE 30 MG PO (08:05)
[2024-02-23 11:28] LABS: Glucose - Point of Care 196 mg/dl (70-99)
[2024-02-23] MEDS: NOVOLOG FLEXPEN-LOW RESISTANCE 1 UNITS SC (11:30)
--- NOTE | 2024-02-23 14:52 | W.DS.TRANS ---
DC Summary - [employer]
-
Discharge Instructions:
Discharge Diagnosis/Procedures COPD exacerbation
Diet Regular
Instructions:
Stand-Alone Forms:
Changes to Home Medications: Yes
Discharge Medications:
DC Medications w/original date entered in [employer]
albuterol sulfate 2.5 mg/3 mL (0.083 %) solution for nebulization 2.5 mg (3 mL) inhalation QID PRN shortness of breath or wheezing #75 mL 12/12/23
albuterol sulfate 90 mcg/actuation aerosol inhaler 1 puff inhalation R Q4HPRN PRN sob 12/12/23
albuterol sulfate 90 mcg/actuation aerosol inhaler 2 inh inhalation Q6HPRN PRN shortness of breath or wheezing #6.7 grams 12/12/23
ipratropium 0.5 mg-albuterol 3 mg (2.5 mg base)/3 mL nebulization soln 3 ml inhalation R BIDPRN PRN sob 12/12/23
azithromycin 250 mg tablet 500 mg (2 x 250 mg) PO MoWeFr@0800 #30 tabs 02/23/24
budesonide 0.5 mg/2 mL suspension for nebulization 0.5 mg (2 mL) inhalation R BID Lung/Breathing Issues #1 mL 02/23/24
escitalopram oxalate 20 mg tablet 20 mg PO DAILY #30 tabs 02/23/24
guaifenesin 600 mg tablet, extended release 12 hr 1,200 mg (2 x 600 mg) PO Q12 #90 tabs 02/23/24
nicotine 21 mg/24 hr daily transdermal patch 21 mg transdermal DAILY #28 ea 02/23/24
pantoprazole 20 mg tablet,delayed release (Protonix) 20 mg PO DAILY #30 tabs 02/23/24
prednisone 10 mg tablet 10 mg PO DIRECTED #18 tabs 02/23/24
Home Medication Changes
Lexapro added
Prednisone taper.
Pending Results: No
[2024-02-23 15:38] VITALS: BP 134/80
--- NOTE | 2024-02-23 15:45 | CM ---
Addendum entered by Ayla George 02/23/24 16:22:
Ride home arranged with [employer]
Original Note:
Case management following for d/c planning
For d/c today
PT recommending HH - [facility] to follow
Plan - home with [facility]
== END 2024-02-23 17:29 | disposition home health service (06) | DRG 191 ==
LOC: 4 EAST ACU 05:16
PROVIDERS: Hospitalist; ADMITTING PHYSICIAN Internal Medicine; ATTENDING PHYSICIAN Internal Medicine; CONSULT PHYSICIAN Internal Medicine Critical Care Medicine; EMERGENCY PHYSICIAN Emergency Medicine; FAMILY PHYSICIAN Family Medicine
DX: J44.1 Chronic obstructive pulmonary disease with (acute) exacerbation (principal); E87.1 Hypo-osmolality and hyponatremia; I82.541 Chronic embolism and thrombosis of right tibial vein; I82.511 Chronic embolism and thrombosis of right femoral vein; I82.531 Chronic embolism and thrombosis of right popliteal vein; I82.551 Chronic embolism and thrombosis of right peroneal vein; F11.20 Opioid dependence, uncomplicated; J98.11 Atelectasis; J43.9 Emphysema, unspecified; R09.02 Hypoxemia; R06.89 Other abnormalities of breathing; F17.210 Nicotine dependence, cigarettes, uncomplicated; G89.29 Other chronic pain; M54.9 Dorsalgia, unspecified; F41.9 Anxiety disorder, unspecified; F10.91 Alcohol use, unspecified, in remission; R10.13 Epigastric pain; Z79.899 Other long term (current) drug therapy; Z87.81 Personal history of (healed) traumatic fracture; Z87.19 Personal history of other diseases of the digestive system; Z88.8 Allergy status to other drugs, medicaments and biological substances
CPT/HCPCS: 71046; 71275; 80048; 80053; 82962; 84484; 85025; 85379; 93005; 93970; 94640; 94669; 97116; 97161; 97530; 99285; Q9967

== ENCOUNTER 2024-06-25 13:17 | Day surgery (SDC) | payer MEDICARE, SELFPAY ==
[2024-06-25] VITALS (12 sets, daily range): BP systolic 120–168; BP diastolic 76–89; BMI 24.3
--- NOTE | 2024-06-25 15:06 | ITS.CL.CATH ---
[facility] - Catheterization
Cardiac Catheterization
Procedure Report:
CARDIAC CATHETERIZATION REPORT
Date of Procedure: 06/25/2024
Referring: Clark MD
Indication: Severe exertional dyspnea in patient with advanced COPD
�
HEMODYNAMIC DATA
AO: 126/77
LV: 126/17
�
LEFT VENTRICULOGRAPHY: Normal left ventricular wall motion with EF 56%
�
CORONARY ANGIOGRAPHY
Dominance: Right
Left Main: Normal
LAD: 20% mid LAD stenosis with otherwise mild luminal irregularities
Circumflex: Mild luminal irregularities
RCA: Dominant with mild luminal irregularities
�
Closure Device: None-the procedure was performed via the right radial artery. The Bimal's test was normal prior to the procedure.
�
Radiation (mGy): 146
DAP (cm2.Gy): 12.7
Fluoroscopy time: 2.0 minutes
�
CONCLUSIONS
1:�Normal left ventricular function with EF 56%
2:�Very mild CAD
3. Continue aspirin and statin therapy
4. In light of these findings, his severe exertional dyspnea is due solely to the severity of his COPD
�
�
Copy to: Felipe Noyola MD, Danilo Garcia MD
�
Humphrey Alexis MD, [facility]
[2024-06-25] MEDS: NSS 1000 IV (15:11)
== END 2024-06-25 17:55 | disposition home or self-care (01) ==
LOC: CATH 13:17
PROVIDERS: ATTENDING PHYSICIAN Internal Medicine Cardiovascular Disease; FAMILY PHYSICIAN Family Medicine
DX: J44.9 Chronic obstructive pulmonary disease, unspecified (principal); Z79.82 Long term (current) use of aspirin; Z79.899 Other long term (current) drug therapy; R06.09 Other forms of dyspnea
CPT/HCPCS: 93458; C1894; Q9967